=== PATIENT | male | born 1950 | race African-American/Black ===

== ENCOUNTER 2018-02-13 08:02 | Inpatient (IN) ==
[2018-02-21 12:06] VITALS: BP 133/77
== END 2018-02-21 13:45 | disposition home health service (06) | DRG 240 ==
LOC: N.RAD 08:02 → N.SDSINP 08:14 → N.3E 12:17
PROVIDERS: ADMIT Surgery; ATTEND Surgery

== ENCOUNTER 2018-08-06 11:58 | Inpatient (IN) ==
[2018-08-06 12:35] LABS: Basophils % 0.3 % (0.0-0.8); Eosinophils # 0.1 10*3/uL (0.0-0.87); Eosinophils % 0.8 % (0.00-10.9); Hematocrit 31.7 VOL% (42.0-52.0); Hemoglobin 10.3 GM/DL (14.0-18.0); Immature Granulocytes % 0.4 %; Immature Granulocytes Absolute 0.04 #; Lymphocytes # 1.2 10*3/uL (1.4-4.0); Lymphocytes % 13.2 % (21.2-54.2); Mean Corpuscular HGB Conc 32.5 GM/DL (32-36); Mean Corpuscular Hemoglobin 30 PG (27-34); Mean Corpuscular Volume 91.1 FL (87-102); Mean Platelet Volume 9.7 FL (9.6-12.0); Monocytes # 1.1 10*3/uL (0.11-0.8); Monocytes % 12.3 % (1.7-12.7); Neutrophils # 6.8 10*3/uL (1.4-7.4); Platelet Count 341 T/CUMM (130-400); Red Blood Count 3.48 MC/CUMM (3.8-5.5); Red Cell Distribution Width 12.2 % (9.3-17.3); White Blood Count 9.3 T/CUMM (4-12)
[2018-08-06 13:05] LABS: Albumin 2.7 G/DL (3.4-5.0); Bilirubin,Total 0.9 MG/DL (0.2-1.0); Calcium 9.1 MG/DL (8.5-10.1); Osmolality,Calculated 271.5 MOS/KG (273-304); Potassium 4.4 MMOL/L (3.5-5.1); Total Protein 7.4 G/DL (6.4-8.3)
[2018-08-06 13:15] LABS: Lactic Acid 1.8 MMOL/L (0.4-2.0)
[2018-08-06] MEDS ORDERED: SODIUM CHLORIDE 0.9% 1,000 ML IV STA (13:16)
[2018-08-06] MEDS ORDERED: CLINDAMYCIN INJ 600 MG in PREMIX 1 EACH IV STA (13:16)
[2018-08-06] MEDS ORDERED: DEXTROSE 50% 25 GM/50 ML VIAL IV PRN (15:40)
[2018-08-06] MEDS ORDERED: NICOTINE 21 MG/24 HR PATCH TRANSDERM PRN (15:40)
[2018-08-06] MEDS ORDERED: ONDANSETRON 4 MG/2 ML VIAL IV PRN (15:40)
[2018-08-06] MEDS ORDERED: GLUCAGON 1 MG VIAL IM PRN (15:40)
[2018-08-06] MEDS ORDERED: DOCUSATE SODIUM 100 MG CAPSULE PO PRN (15:40)
[2018-08-06] MEDS ORDERED: ACETAMINOPHEN 325 MG TABLET PO PRN (15:40)
[2018-08-06] MEDS ORDERED: diphenhydrAMINE CAP 25 MG CAPSULE PO PRN (15:40)
[2018-08-06] MEDS: PANTOPRAZOLE 40 MG TABLET PO SCH (17:30)
[2018-08-06] MEDS: SODIUM CHLORIDE 0.9% 1,000 ML IV SCH (17:47)
[2018-08-06] MEDS: VANCOMYCIN INJ 1,250 MG in SODIUM CHLORIDE 0.9% 250 ML IV SCH (18:40)
[2018-08-06] MEDS: MORPHINE 4 MG/1 ML VIAL IV SCH ×2 (18:40→21:04)
[2018-08-06] MEDS: INSULIN LISPRO 100 UNIT/ML SUBCUT SCH (18:41)
[2018-08-06] MEDS: glipiZIDE 10 MG TABLET PO SCH (21:06)
[2018-08-06] MEDS: GABAPENTIN 300 MG CAPSULE PO SCH (21:07)
[2018-08-06] MEDS: ATORVASTATIN 80 MG TABLET PO SCH (21:07)
[2018-08-07] MEDS: SODIUM CHLORIDE 0.9% 1,000 ML IV SCH ×2 (02:56→09:45)
[2018-08-07 06:15] LABS: Basophils % 0.4 % (0.0-0.8); Eosinophils # 0.2 10*3/uL (0.0-0.87); Eosinophils % 2.7 % (0.00-10.9); Hematocrit 26.8 VOL% (42.0-52.0); Hemoglobin 8.7 GM/DL (14.0-18.0); Immature Granulocytes % 0.5 %; Immature Granulocytes Absolute 0.04 #; Lymphocytes # 1.5 10*3/uL (1.4-4.0); Lymphocytes % 20.5 % (21.2-54.2); Mean Corpuscular HGB Conc 32.5 GM/DL (32-36); Mean Corpuscular Hemoglobin 30 PG (27-34); Mean Corpuscular Volume 91.8 FL (87-102); Mean Platelet Volume 9.8 FL (9.6-12.0); Monocytes # 1.1 10*3/uL (0.11-0.8); Monocytes % 14.6 % (1.7-12.7); Neutrophils # 4.6 10*3/uL (1.4-7.4); Neutrophils % 61.3 % (38.7-73.9); Platelet Count 284 T/CUMM (130-400); Red Blood Count 2.92 MC/CUMM (3.8-5.5); Red Cell Distribution Width 12.2 % (9.3-17.3); White Blood Count 7.5 T/CUMM (4-12)
[2018-08-07 06:39] LABS: Calcium 8.5 MG/DL (8.5-10.1)
[2018-08-07 06:47] LABS: Risk Ratio 3.29; Thyroid Stimulating Hormone 0.573 uIU/ml (0.358-3.74); VLDL CHOLESTEROL 25.8 MG/DL
[2018-08-07] MEDS: INSULIN LISPRO 100 UNIT/ML SUBCUT SCH ×4 (08:08→20:46)
[2018-08-07] MEDS ORDERED: SODIUM CHLORIDE 0.9% 1,000 ML IV ONE ×2 (08:26→13:00)
[2018-08-07] MEDS ORDERED: MAGNESIUM SULF RIDER 4 GM in PREMIX 1 EACH IV PRN (08:27)
[2018-08-07] MEDS: MAGNESIUM SULF RIDER 2 GM in PREMIX 1 EACH IV PRN (09:45)
[2018-08-07] MEDS ORDERED: BUPIVACAINE 0.5% 50 ML VIAL ONE (10:14)
[2018-08-07] MEDS ORDERED: GLUCAGON 1 MG VIAL IM PRN (11:24)
[2018-08-07] MEDS ORDERED: DEXTROSE 50% 25 GM/50 ML VIAL IV PRN (11:24)
[2018-08-07] MEDS ORDERED: ONDANSETRON 4 MG/2 ML VIAL IV PRN (11:35)
[2018-08-07] MEDS ORDERED: PROMETHAZINE INJ 25 MG in SODIUM CHLORIDE 0.9% 50 ML IV PRN (11:35)
[2018-08-07] MEDS ORDERED: MORPHINE 10 MG/1 ML VIAL IV PRN (11:35)
[2018-08-07] MEDS ORDERED: MEPERIDINE 25 MG/1 ML VIAL IV PRN (11:35)
[2018-08-07] MEDS ORDERED: diphenhydrAMINE 50 MG/1 ML VIAL IV PRN (11:35)
[2018-08-07] MEDS: ASPIRIN CHEW 81 MG TABLET PO SCH (12:18)
[2018-08-07] MEDS: glipiZIDE 10 MG TABLET PO SCH ×2 (12:19→20:39)
[2018-08-07] MEDS: sitaGLIPtin 100 MG TABLET PO SCH (12:19)
[2018-08-07] MEDS: VANCOMYCIN INJ 1,250 MG in SODIUM CHLORIDE 0.9% 250 ML IV SCH (12:31)
[2018-08-07] MEDS ORDERED: fentaNYL 100 MCG/2 ML VIAL ONE (13:19)
[2018-08-07] MEDS ORDERED: PHENYLEPHRINE 1 MG/10 ML SYRINGE IV ONE (13:19)
[2018-08-07] MEDS ORDERED: SEVOFLURANE 1 UNIT/15 MINUTE INH ONE (13:19)
[2018-08-07] MEDS ORDERED: PROPOFOL 200 MG/20 ML VIAL IV ONE (13:19)
[2018-08-07] MEDS: PANTOPRAZOLE 40 MG TABLET PO SCH (14:07)
[2018-08-07] MEDS: GABAPENTIN 300 MG CAPSULE PO SCH ×2 (14:07→20:39)
[2018-08-07] MEDS: ATORVASTATIN 80 MG TABLET PO SCH (20:39)
[2018-08-08] MEDS: SODIUM CHLORIDE 0.9% 1,000 ML IV SCH (02:35)
[2018-08-08] MEDS: VANCOMYCIN INJ 1,250 MG in SODIUM CHLORIDE 0.9% 250 ML IV SCH (05:34)
[2018-08-08] MEDS: INSULIN LISPRO 100 UNIT/ML SUBCUT SCH ×4 (08:34→23:05)
[2018-08-08 08:40] LABS: Basophils % 0.5 % (0.0-0.8); Eosinophils # 0.2 10*3/uL (0.0-0.87); Eosinophils % 3.8 % (0.00-10.9); Hematocrit 24.6 VOL% (42.0-52.0); Hemoglobin 7.8 GM/DL (14.0-18.0); Immature Granulocytes % 0.4 %; Immature Granulocytes Absolute 0.02 #; Lymphocytes % 18.7 % (21.2-54.2); Mean Corpuscular HGB Conc 31.7 GM/DL (32-36); Mean Corpuscular Hemoglobin 30 PG (27-34); Mean Corpuscular Volume 93.5 FL (87-102); Mean Platelet Volume 9.4 FL (9.6-12.0); Monocytes # 0.7 10*3/uL (0.11-0.8); Monocytes % 12.5 % (1.7-12.7); Neutrophils # 3.5 10*3/uL (1.4-7.4); Neutrophils % 64.1 % (38.7-73.9); Platelet Count 223 T/CUMM (130-400); Red Blood Count 2.63 MC/CUMM (3.8-5.5); Red Cell Distribution Width 12.4 % (9.3-17.3); White Blood Count 5.5 T/CUMM (4-12)
[2018-08-08 09:04] LABS: Calcium 7.9 MG/DL (8.5-10.1); Osmolality,Calculated 277.5 MOS/KG (273-304); Potassium 4.1 MMOL/L (3.5-5.1)
[2018-08-08] MEDS: MORPHINE 4 MG/1 ML VIAL IV PRN (09:34)
[2018-08-08] MEDS: GABAPENTIN 300 MG CAPSULE PO SCH ×2 (09:37→23:01)
[2018-08-08] MEDS: glipiZIDE 10 MG TABLET PO SCH ×2 (09:37→23:01)
[2018-08-08] MEDS: ASPIRIN CHEW 81 MG TABLET PO SCH (09:37)
[2018-08-08] MEDS: PANTOPRAZOLE 40 MG TABLET PO SCH (09:38)
[2018-08-08] MEDS: SODIUM HYPOCHLORITE 0.25% IRRIG 473 ML BOTTLE TOP SCH (09:38)
[2018-08-08] MEDS: sitaGLIPtin 100 MG TABLET PO SCH (09:38)
[2018-08-08] MEDS: PIPERACILLIN/TAZOBACTAM 3,375 MG in SODIUM CHLORIDE 0.9% 100 ML IV SCH ×2 (14:49→22:55)
[2018-08-08] MEDS: ATORVASTATIN 80 MG TABLET PO SCH (23:01)
[2018-08-09] MEDS: VANCOMYCIN INJ 1,250 MG in SODIUM CHLORIDE 0.9% 250 ML IV SCH ×2 (05:00→17:18)
[2018-08-09 05:18] LABS: Basophils % 0.6 % (0.0-0.8); Eosinophils # 0.3 10*3/uL (0.0-0.87); Eosinophils % 4.7 % (0.00-10.9); Hematocrit 24.2 VOL% (42.0-52.0); Hemoglobin 7.4 GM/DL (14.0-18.0); Immature Granulocytes % 0.6 %; Immature Granulocytes Absolute 0.03 #; Lymphocytes # 1.2 10*3/uL (1.4-4.0); Lymphocytes % 22.9 % (21.2-54.2); Mean Corpuscular HGB Conc 30.6 GM/DL (32-36); Mean Corpuscular Hemoglobin 29 PG (27-34); Mean Corpuscular Volume 95.7 FL (87-102); Mean Platelet Volume 9.8 FL (9.6-12.0); Monocytes # 0.7 10*3/uL (0.11-0.8); Monocytes % 12.5 % (1.7-12.7); Neutrophils # 3.1 10*3/uL (1.4-7.4); Neutrophils % 58.7 % (38.7-73.9); Platelet Count 272 T/CUMM (130-400); Red Blood Count 2.53 MC/CUMM (3.8-5.5); Red Cell Distribution Width 12.4 % (9.3-17.3); White Blood Count 5.3 T/CUMM (4-12)
[2018-08-09 05:49] LABS: Calcium 8.2 MG/DL (8.5-10.1); Osmolality,Calculated 278.3 MOS/KG (273-304); Potassium 4.6 MMOL/L (3.5-5.1)
[2018-08-09] MEDS: INSULIN LISPRO 100 UNIT/ML SUBCUT SCH ×4 (09:00→21:43)
[2018-08-09] MEDS: PANTOPRAZOLE 40 MG TABLET PO SCH (09:02)
[2018-08-09] MEDS: GABAPENTIN 300 MG CAPSULE PO SCH ×2 (09:02→21:44)
[2018-08-09] MEDS: sitaGLIPtin 100 MG TABLET PO SCH (09:03)
[2018-08-09] MEDS: ASPIRIN CHEW 81 MG TABLET PO SCH (09:06)
[2018-08-09] MEDS: glipiZIDE 10 MG TABLET PO SCH ×2 (09:07→21:43)
[2018-08-09] MEDS: PIPERACILLIN/TAZOBACTAM 3,375 MG in SODIUM CHLORIDE 0.9% 100 ML IV SCH ×2 (09:08→17:17)
[2018-08-09] MEDS: MORPHINE 4 MG/1 ML VIAL IV PRN (12:17)
[2018-08-09] MEDS: SODIUM HYPOCHLORITE 0.25% IRRIG 473 ML BOTTLE TOP SCH (13:08)
[2018-08-09] MEDS: MAGNESIUM SULF RIDER 2 GM in PREMIX 1 EACH IV PRN (14:51)
[2018-08-09] MEDS: ATORVASTATIN 80 MG TABLET PO SCH (21:44)
[2018-08-10] MEDS: PIPERACILLIN/TAZOBACTAM 3,375 MG in SODIUM CHLORIDE 0.9% 100 ML IV SCH ×3 (01:07→17:29)
[2018-08-10 04:16] LABS: Basophils % 0.6 % (0.0-0.8); Eosinophils # 0.3 10*3/uL (0.0-0.87); Eosinophils % 5.7 % (0.00-10.9); Hematocrit 25.1 VOL% (42.0-52.0); Hemoglobin 7.7 GM/DL (14.0-18.0); Immature Granulocytes % 0.4 %; Immature Granulocytes Absolute 0.02 #; Lymphocytes # 1.2 10*3/uL (1.4-4.0); Lymphocytes % 25.1 % (21.2-54.2); Mean Corpuscular HGB Conc 30.7 GM/DL (32-36); Mean Corpuscular Hemoglobin 28 PG (27-34); Mean Corpuscular Volume 92.6 FL (87-102); Mean Platelet Volume 9.6 FL (9.6-12.0); Monocytes # 0.5 10*3/uL (0.11-0.8); Monocytes % 10.1 % (1.7-12.7); Neutrophils # 2.8 10*3/uL (1.4-7.4); Neutrophils % 58.1 % (38.7-73.9); Platelet Count 305 T/CUMM (130-400); Red Blood Count 2.71 MC/CUMM (3.8-5.5); Red Cell Distribution Width 12.3 % (9.3-17.3); White Blood Count 4.9 T/CUMM (4-12)
[2018-08-10 04:36] LABS: Calcium 8.1 MG/DL (8.5-10.1); Osmolality,Calculated 282.1 MOS/KG (273-304); Potassium 4.4 MMOL/L (3.5-5.1)
[2018-08-10] MEDS: VANCOMYCIN INJ 1,250 MG in SODIUM CHLORIDE 0.9% 250 ML IV SCH ×2 (06:26→17:29)
[2018-08-10] MEDS: SODIUM HYPOCHLORITE 0.25% IRRIG 473 ML BOTTLE TOP SCH (07:50)
[2018-08-10] MEDS: MORPHINE 4 MG/1 ML VIAL IV PRN (07:51)
[2018-08-10] MEDS: INSULIN LISPRO 100 UNIT/ML SUBCUT SCH ×4 (08:17→21:39)
[2018-08-10] MEDS: GABAPENTIN 300 MG CAPSULE PO SCH ×2 (09:23→21:01)
[2018-08-10] MEDS: glipiZIDE 10 MG TABLET PO SCH ×2 (09:24→21:01)
[2018-08-10] MEDS: sitaGLIPtin 100 MG TABLET PO SCH (09:25)
[2018-08-10] MEDS: PANTOPRAZOLE 40 MG TABLET PO SCH (09:25)
[2018-08-10] MEDS: ASPIRIN CHEW 81 MG TABLET PO SCH (09:25)
[2018-08-10] MEDS: MAGNESIUM OXIDE 400 MG TABLET PO SCH (21:01)
[2018-08-10] MEDS: METOPROLOL SUCCINATE XL 50 MG TABLET PO SCH (21:01)
[2018-08-10] MEDS: ATORVASTATIN 80 MG TABLET PO SCH (21:01)
[2018-08-11] MEDS: PIPERACILLIN/TAZOBACTAM 3,375 MG in SODIUM CHLORIDE 0.9% 100 ML IV SCH ×2 (00:23→08:00)
[2018-08-11] MEDS: VANCOMYCIN INJ 1,250 MG in SODIUM CHLORIDE 0.9% 250 ML IV SCH (05:40)
[2018-08-11 05:44] LABS: Basophils % 0.5 % (0.0-0.8); Eosinophils # 0.3 10*3/uL (0.0-0.87); Eosinophils % 4.8 % (0.00-10.9); Hematocrit 25.3 VOL% (42.0-52.0); Hemoglobin 7.9 GM/DL (14.0-18.0); Immature Granulocytes % 0.9 %; Immature Granulocytes Absolute 0.05 #; Lymphocytes # 1.3 10*3/uL (1.4-4.0); Lymphocytes % 23.3 % (21.2-54.2); Mean Corpuscular HGB Conc 31.2 GM/DL (32-36); Mean Corpuscular Hemoglobin 29 PG (27-34); Mean Corpuscular Volume 92.7 FL (87-102); Mean Platelet Volume 9.6 FL (9.6-12.0); Monocytes # 0.6 10*3/uL (0.11-0.8); Monocytes % 10.5 % (1.7-12.7); Neutrophils # 3.4 10*3/uL (1.4-7.4); Platelet Count 324 T/CUMM (130-400); Red Blood Count 2.73 MC/CUMM (3.8-5.5); Red Cell Distribution Width 12.5 % (9.3-17.3); White Blood Count 5.6 T/CUMM (4-12)
[2018-08-11 05:56] LABS: Calcium 8.4 MG/DL (8.5-10.1); Osmolality,Calculated 281.3 MOS/KG (273-304); Potassium 4.6 MMOL/L (3.5-5.1)
[2018-08-11] MEDS: INSULIN LISPRO 100 UNIT/ML SUBCUT SCH ×2 (07:23→12:10)
[2018-08-11] MEDS: MAGNESIUM OXIDE 400 MG TABLET PO SCH (08:03)
[2018-08-11] MEDS: GABAPENTIN 300 MG CAPSULE PO SCH (08:03)
[2018-08-11] MEDS: sitaGLIPtin 100 MG TABLET PO SCH (08:03)
[2018-08-11] MEDS: glipiZIDE 10 MG TABLET PO SCH (08:03)
[2018-08-11] MEDS: METOPROLOL SUCCINATE XL 50 MG TABLET PO SCH (08:03)
[2018-08-11] MEDS: PANTOPRAZOLE 40 MG TABLET PO SCH (08:04)
[2018-08-11] MEDS: ASPIRIN CHEW 81 MG TABLET PO SCH (08:04)
[2018-08-11] MEDS: SODIUM HYPOCHLORITE 0.25% IRRIG 473 ML BOTTLE TOP SCH (08:06)
[2018-08-11] MEDS ORDERED: MAGNESIUM SULF RIDER 2 GM in PREMIX 1 EACH IV ONE (09:00)
[2018-08-11] MEDS ORDERED: LOSARTAN 50 MG TABLET PO SCH (09:00)
[2018-08-11 11:40] VITALS: BP 134/69
[2018-08-11] MEDS ORDERED: CEFUROXIME 500 MG TABLET PO SCH (21:00)
== END 2018-08-11 15:24 | disposition home health service (06) | DRG 856 ==
LOC: N.ED 11:58 → N.EDINP 15:41 → SUATTDRO 15:41 → N.2W 16:36 → N.2E 18:00
PROVIDERS: ADMIT Internal Medicine; ATTEND Internal Medicine

== ENCOUNTER 2021-02-09 09:36 | Inpatient (IN) ==
[2021-02-09 10:39] LABS: Basophils # 0.1 10*3/uL (0.0-0.2); Basophils % 0.2 % (0.0-0.8); Eosinophils # 0.1 10*3/uL (0.0-0.87); Eosinophils % 0.4 % (0.00-10.9); Hematocrit 37.7 VOL% (42.0-52.0); Hemoglobin 13.1 GM/DL (14.0-18.0); Immature Granulocytes % 0.8 %; Immature Granulocytes Absolute 0.17 #; Lymphocytes # 1.5 10*3/uL (1.4-4.0); Lymphocytes % 7.2 % (21.2-54.2); Mean Corpuscular HGB Conc 34.7 GM/DL (32-36); Mean Corpuscular Volume 91.5 FL (87-102); Mean Platelet Volume 10.3 FL (9.6-12.0); Monocytes % 8.3 % (1.7-12.7); Neutrophils % 83.1 % (38.7-73.9); Platelet Count 408 T/CUMM (130-400); Red Blood Count 4.12 MC/CUMM (3.8-5.5); Red Cell Distribution Width 11.8 % (9.3-17.3); White Blood Count 20.8 T/CUMM (4-12)
[2021-02-09 11:01] LABS: Albumin 1.9 G/DL (3.4-5.0); Bilirubin,Total 0.7 MG/DL (0.2-1.0); Calcium 9.8 MG/DL (8.5-10.1); Osmolality,Calculated 274.9 MOS/KG (273-304); Potassium 4.8 MMOL/L (3.5-5.1); Total Protein 8.4 G/DL (6.4-8.2)
[2021-02-09 11:03] LABS: Band Neutrophils 1 % (0-10); Lymphocytes 7 % (20-55); Segmented Neutrophils 82 % (50-85); Total Cells Counted 100
[2021-02-09 11:04] LABS: Hypochromasia Slight; Microcytosis 1+; Platelet Estimate Increased
[2021-02-09 11:22] LABS: Amorphous Crystals,Urine Occasional /HPF (Few); Bilirubin,Urine Negative (Negative); Blood, Urine Moderate mg/dL (Negative); Glucose,Urine (UA) >=500 mg/dL (Negative); Ketones,Urine Negative (Negative); Mucus,Urine Occasional /LPF (Occasional); Nitrite,Urine Negative (Negative); Protein,Urine >=500 MG/DL; RBC,Urine 2 /HPF (0-4); Squamous Epithelial Cell,Urine Occasional /HPF (0-10); Urine Appearance Slightly Hazy (Clear); Urine Color Yellow (Yellow); Urine Specific Gravity 1.026 (1.001-1.035)
[2021-02-09] MEDS ORDERED: SODIUM CHLORIDE 0.9% 1,000 ML IV STA (11:53)
[2021-02-09] MEDS ORDERED: DEXTROSE 50% 25 GM/50 ML VIAL IV PRN (12:58)
[2021-02-09] MEDS ORDERED: hydrALAZINE 20 MG/1 ML VIAL IV PRN (12:58)
[2021-02-09] MEDS ORDERED: DOCUSATE SODIUM 100 MG CAPSULE PO PRN (12:58)
[2021-02-09] MEDS ORDERED: GLUCAGON 1 MG VIAL IM PRN (12:58)
[2021-02-09] MEDS ORDERED: ONDANSETRON 4 MG/2 ML VIAL IV PRN (12:58)
[2021-02-09 13:37] LABS: Risk Ratio 4.59; VLDL CHOLESTEROL 30.8 MG/DL
[2021-02-09] MEDS: ENOXAPARIN 40 MG/0.4 ML SYRINGE SUBCUT SCH (14:57)
[2021-02-09] MEDS: SODIUM CHLORIDE 0.9% 1,000 ML IV SCH ×2 (18:50→20:48)
[2021-02-09] MEDS: INSULIN REGULAR 100 UNIT/ML SUBCUT SCH ×2 (18:50→20:47)
[2021-02-09] MEDS: METOPROLOL TARTRATE 50 MG TABLET PO SCH (20:47)
[2021-02-09] MEDS: GABAPENTIN 300 MG CAPSULE PO SCH (20:47)
[2021-02-09] MEDS: ACETAMINOPHEN 325 MG TABLET PO PRN (20:47)
[2021-02-09 21:17] LABS: Bilirubin,Urine Negative (Negative); Blood, Urine Moderate mg/dL (Negative); Glucose,Urine (UA) >=500 mg/dL (Negative); Hyaline Casts,Urine 1 /LPF (0-3); Ketones,Urine 5 mg/dL (Negative); Mucus,Urine Occasional /LPF (Occasional); Nitrite,Urine Negative (Negative); Protein,Urine >=500 MG/DL; RBC,Urine 4 /HPF (0-4); Squamous Epithelial Cell,Urine Occasional /HPF (0-10); Urine Appearance Slightly Hazy (Clear); Urine Color Yellow (Yellow); Urine Specific Gravity 1.042 (1.001-1.035)
[2021-02-10 05:49] LABS: Basophils % 0.2 % (0.0-0.8); Eosinophils # 0.2 10*3/uL (0.0-0.87); Eosinophils % 1.3 % (0.00-10.9); Hematocrit 33.2 VOL% (42.0-52.0); Hemoglobin 11.7 GM/DL (14.0-18.0); Immature Granulocytes % 1.8 %; Immature Granulocytes Absolute 0.33 #; Lymphocytes # 1.2 10*3/uL (1.4-4.0); Lymphocytes % 6.6 % (21.2-54.2); Mean Corpuscular HGB Conc 35.2 GM/DL (32-36); Mean Corpuscular Volume 91.7 FL (87-102); Mean Platelet Volume 10.3 FL (9.6-12.0); Monocytes % 10.5 % (1.7-12.7); Neutrophils % 79.6 % (38.7-73.9); Platelet Count 362 T/CUMM (130-400); Red Blood Count 3.62 MC/CUMM (3.8-5.5); Red Cell Distribution Width 11.7 % (9.3-17.3); White Blood Count 18.2 T/CUMM (4-12)
[2021-02-10] MEDS: SODIUM CHLORIDE 0.9% 1,000 ML IV SCH ×2 (06:22→15:23)
[2021-02-10 06:37] LABS: Albumin 1.5 G/DL (3.4-5.0); Bilirubin,Total 0.7 MG/DL (0.2-1.0); Calcium 8.9 MG/DL (8.5-10.1); Osmolality,Calculated 266.7 MOS/KG (273-304); Potassium 4.7 MMOL/L (3.5-5.1); Thyroid Stimulating Hormone 1.59 uIU/ml (0.358-3.74); Total Protein 7.1 G/DL (6.4-8.2)
[2021-02-10] MEDS: ASPIRIN EC 81 MG TABLET PO SCH (10:00)
[2021-02-10] MEDS: GABAPENTIN 300 MG CAPSULE PO SCH ×2 (10:00→21:46)
[2021-02-10] MEDS: METOPROLOL TARTRATE 50 MG TABLET PO SCH ×2 (10:00→21:46)
[2021-02-10] MEDS: FOLIC ACID 1 MG TABLET PO SCH (10:00)
[2021-02-10] MEDS: THIAMINE 100 MG TABLET PO SCH (10:01)
[2021-02-10] MEDS: NICOTINE 21 MG/24 HR PATCH TRANSDERM SCH (13:08)
[2021-02-10] MEDS: INSULIN REGULAR 100 UNIT/ML SUBCUT SCH ×2 (13:36→16:58)
[2021-02-10] MEDS ORDERED: LORazepam 2 MG/1 ML VIAL IV PRN (14:50)
[2021-02-10] MEDS: ATORVASTATIN 10 MG TABLET PO SCH (21:46)
[2021-02-10] MEDS: ENOXAPARIN 40 MG/0.4 ML SYRINGE SUBCUT SCH (21:46)
[2021-02-10] MEDS: INSULIN GLARGINE 100 UNIT/ML SUBCUT SCH (21:46)
[2021-02-10] MEDS: PIPERACILLIN/TAZOBACTAM 3,375 MG in SODIUM CHLORIDE 0.9% 100 ML IV SCH (21:47)
[2021-02-11] MEDS: PIPERACILLIN/TAZOBACTAM 3,375 MG in SODIUM CHLORIDE 0.9% 100 ML IV SCH ×3 (05:55→20:20)
[2021-02-11] MEDS: SODIUM CHLORIDE 0.9% 1,000 ML IV SCH ×3 (05:55→21:42)
[2021-02-11 06:28] LABS: Basophils % 0.2 % (0.0-0.8); Eosinophils # 0.2 10*3/uL (0.0-0.87); Eosinophils % 1.1 % (0.00-10.9); Hematocrit 31.6 VOL% (42.0-52.0); Hemoglobin 10.4 GM/DL (14.0-18.0); Immature Granulocytes % 1.2 %; Lymphocytes # 1.6 10*3/uL (1.4-4.0); Lymphocytes % 9.1 % (21.2-54.2); Mean Corpuscular HGB Conc 32.9 GM/DL (32-36); Mean Platelet Volume 10.7 FL (9.6-12.0); Monocytes % 9.9 % (1.7-12.7); Neutrophils % 78.5 % (38.7-73.9); Platelet Count 378 T/CUMM (130-400); Red Blood Count 3.36 MC/CUMM (3.8-5.5); Red Cell Distribution Width 11.9 % (9.3-17.3); White Blood Count 17.1 T/CUMM (4-12)
[2021-02-11 06:47] LABS: Alanine Aminotransferase < 9 U/L (16-61); Albumin 1.4 G/DL (3.4-5.0); Alkaline Phosphatase 89 U/L (45-117); Aspartate Amino Transferase 11 U/L (0-37); Blood Urea Nitrogen 14 MG/DL (7-18); Calcium 8.6 MG/DL (8.5-10.1); Carbon Dioxide 23 MMOL/L (21-32); Estimated Glom Filtration Rate 98 ML/MIN; Glucose 153 MG/DL (74-106); Osmolality,Calculated 269.4 MOS/KG (273-304); Potassium 4.1 MMOL/L (3.5-5.1); Sodium 133 MMOL/L (136-145); Total Protein 6.8 G/DL (6.4-8.2)
[2021-02-11] MEDS: INSULIN REGULAR 100 UNIT/ML SUBCUT SCH ×3 (09:36→17:02)
[2021-02-11] MEDS: ASPIRIN EC 81 MG TABLET PO SCH (09:36)
[2021-02-11] MEDS: FOLIC ACID 1 MG TABLET PO SCH (09:36)
[2021-02-11] MEDS: GABAPENTIN 300 MG CAPSULE PO SCH ×2 (09:36→20:19)
[2021-02-11] MEDS: THIAMINE 100 MG TABLET PO SCH (09:36)
[2021-02-11] MEDS: METOPROLOL TARTRATE 50 MG TABLET PO SCH ×2 (09:36→20:20)
[2021-02-11] MEDS: NICOTINE 21 MG/24 HR PATCH TRANSDERM SCH (09:37)
[2021-02-11] MEDS: SODIUM HYPOCHLORITE 0.25% IRRIG 473 ML BOTTLE TOP SCH (17:40)
[2021-02-11] MEDS: ATORVASTATIN 10 MG TABLET PO SCH (20:20)
[2021-02-11] MEDS: ENOXAPARIN 40 MG/0.4 ML SYRINGE SUBCUT SCH (20:20)
[2021-02-11] MEDS: INSULIN GLARGINE 100 UNIT/ML SUBCUT SCH (22:06)
[2021-02-12] MEDS: ACETAMINOPHEN 325 MG TABLET PO PRN (04:07)
[2021-02-12] MEDS: PIPERACILLIN/TAZOBACTAM 3,375 MG in SODIUM CHLORIDE 0.9% 100 ML IV SCH (04:07)
[2021-02-12 08:50] LABS: Basophils % 0.2 % (0.0-0.8); Eosinophils # 0.2 10*3/uL (0.0-0.87); Eosinophils % 1.2 % (0.00-10.9); Immature Granulocytes % 1.1 %; Immature Granulocytes Absolute 0.16 #; Lymphocytes # 1.4 10*3/uL (1.4-4.0); Lymphocytes % 9.3 % (21.2-54.2); Mean Corpuscular HGB Conc 33.3 GM/DL (32-36); Mean Corpuscular Volume 94.8 FL (87-102); Mean Platelet Volume 10.6 FL (9.6-12.0); Monocytes % 8.3 % (1.7-12.7); Neutrophils % 79.9 % (38.7-73.9); Platelet Count 349 T/CUMM (130-400); Red Blood Count 3.48 MC/CUMM (3.8-5.5); Red Cell Distribution Width 11.9 % (9.3-17.3); White Blood Count 15.1 T/CUMM (4-12)
[2021-02-12 09:03] LABS: Calcium 8.9 MG/DL (8.5-10.1); Potassium 3.9 MMOL/L (3.5-5.1)
[2021-02-12] MEDS: ASPIRIN EC 81 MG TABLET PO SCH (10:07)
[2021-02-12] MEDS: METOPROLOL TARTRATE 50 MG TABLET PO SCH ×2 (10:07→21:36)
[2021-02-12] MEDS: FOLIC ACID 1 MG TABLET PO SCH (10:07)
[2021-02-12] MEDS: GABAPENTIN 300 MG CAPSULE PO SCH ×2 (10:07→21:36)
[2021-02-12] MEDS: SODIUM HYPOCHLORITE 0.25% IRRIG 473 ML BOTTLE TOP SCH (10:07)
[2021-02-12] MEDS: INSULIN REGULAR 100 UNIT/ML SUBCUT SCH ×3 (10:07→17:40)
[2021-02-12] MEDS: NICOTINE 21 MG/24 HR PATCH TRANSDERM SCH (10:07)
[2021-02-12] MEDS: THIAMINE 100 MG TABLET PO SCH (10:07)
[2021-02-12] MEDS: VANCOMYCIN INJ 1,250 MG in SODIUM CHLORIDE 0.9% 250 ML IV SCH (15:44)
[2021-02-12] MEDS: SODIUM CHLORIDE 0.9% 1,000 ML IV SCH ×2 (16:00→21:28)
[2021-02-12] MEDS: ATORVASTATIN 10 MG TABLET PO SCH (21:36)
[2021-02-12] MEDS: ENOXAPARIN 40 MG/0.4 ML SYRINGE SUBCUT SCH (21:36)
[2021-02-12] MEDS: INSULIN GLARGINE 100 UNIT/ML SUBCUT SCH (23:07)
[2021-02-13] MEDS: VANCOMYCIN INJ 1,250 MG in SODIUM CHLORIDE 0.9% 250 ML IV SCH ×2 (03:46→15:38)
[2021-02-13 05:26] LABS: Basophils % 0.2 % (0.0-0.8); Eosinophils # 0.2 10*3/uL (0.0-0.87); Eosinophils % 1.1 % (0.00-10.9); Hematocrit 29.4 VOL% (42.0-52.0); Hemoglobin 9.6 GM/DL (14.0-18.0); Immature Granulocytes % 1.4 %; Immature Granulocytes Absolute 0.25 #; Lymphocytes # 1.6 10*3/uL (1.4-4.0); Lymphocytes % 9.2 % (21.2-54.2); Mean Corpuscular HGB Conc 32.7 GM/DL (32-36); Mean Corpuscular Volume 96.1 FL (87-102); Mean Platelet Volume 10.6 FL (9.6-12.0); Monocytes % 9.9 % (1.7-12.7); Neutrophils % 78.2 % (38.7-73.9); Platelet Count 343 T/CUMM (130-400); Red Blood Count 3.06 MC/CUMM (3.8-5.5); White Blood Count 17.8 T/CUMM (4-12)
[2021-02-13 05:49] LABS: Calcium 8.3 MG/DL (8.5-10.1); Potassium 4.3 MMOL/L (3.5-5.1)
[2021-02-13 05:56] LABS: Band Neutrophils 2 % (0-10); Eosinophils 1 % (0-10); Hypochromasia 1+; Lymphocytes 5 % (20-55); Segmented Neutrophils 89 % (50-85); Total Cells Counted 100
[2021-02-13 05:57] LABS: Microcytosis Slight; Platelet Estimate Normal
[2021-02-13] MEDS: SODIUM CHLORIDE 0.9% 1,000 ML IV SCH ×3 (06:14→23:57)
[2021-02-13] MEDS: INSULIN REGULAR 100 UNIT/ML SUBCUT SCH ×3 (09:38→17:44)
[2021-02-13] MEDS ORDERED: propofoL 200 MG/20 ML VIAL IV ONE (09:59)
[2021-02-13] MEDS ORDERED: LIDOCAINE 2% 5 ML VIAL ONE (09:59)
[2021-02-13] MEDS ORDERED: fentaNYL 100 MCG/2 ML VIAL ONE (09:59)
[2021-02-13] MEDS ORDERED: BUPIVACAINE MPF 0.25% 30 ML VIAL ONE (10:14)
[2021-02-13] MEDS ORDERED: FAMOTIDINE 20 MG/2 ML VIAL IV ONE (10:16)
[2021-02-13] MEDS ORDERED: ETOMIDATE 40 MG/20 ML VIAL IV ONE (10:23)
[2021-02-13] MEDS ORDERED: SEVOFLURANE 1 UNIT/15 MINUTE INH ONE (11:08)
[2021-02-13] MEDS ORDERED: ONDANSETRON 4 MG/2 ML VIAL ONE (11:08)
[2021-02-13] MEDS ORDERED: GLUCAGON 1 MG VIAL IM PRN (11:22)
[2021-02-13] MEDS ORDERED: DEXTROSE 50% 25 GM/50 ML VIAL IV PRN (11:22)
[2021-02-13] MEDS: NICOTINE 21 MG/24 HR PATCH TRANSDERM SCH (12:11)
[2021-02-13] MEDS: FOLIC ACID 1 MG TABLET PO SCH (12:12)
[2021-02-13] MEDS: THIAMINE 100 MG TABLET PO SCH (12:12)
[2021-02-13] MEDS: GABAPENTIN 300 MG CAPSULE PO SCH ×2 (12:12→21:11)
[2021-02-13] MEDS: METOPROLOL TARTRATE 50 MG TABLET PO SCH ×2 (12:12→21:11)
[2021-02-13] MEDS: ASPIRIN EC 81 MG TABLET PO SCH (12:12)
[2021-02-13] MEDS: SODIUM HYPOCHLORITE 0.25% IRRIG 473 ML BOTTLE TOP SCH (12:12)
[2021-02-13] MEDS: ATORVASTATIN 10 MG TABLET PO SCH (21:11)
[2021-02-13] MEDS: INSULIN GLARGINE 100 UNIT/ML SUBCUT SCH (21:12)
[2021-02-14] MEDS: VANCOMYCIN INJ 1,250 MG in SODIUM CHLORIDE 0.9% 250 ML IV SCH ×2 (02:46→15:03)
[2021-02-14 05:23] LABS: Basophils % 0.3 % (0.0-0.8); Eosinophils # 0.2 10*3/uL (0.0-0.87); Eosinophils % 1.9 % (0.00-10.9); Hematocrit 25.6 VOL% (42.0-52.0); Hemoglobin 8.3 GM/DL (14.0-18.0); Immature Granulocytes % 1.6 %; Lymphocytes # 1.5 10*3/uL (1.4-4.0); Lymphocytes % 12.1 % (21.2-54.2); Mean Corpuscular HGB Conc 32.4 GM/DL (32-36); Mean Corpuscular Volume 96.6 FL (87-102); Mean Platelet Volume 10.5 FL (9.6-12.0); Monocytes % 8.2 % (1.7-12.7); Neutrophils % 75.9 % (38.7-73.9); Platelet Count 333 T/CUMM (130-400); Red Blood Count 2.65 MC/CUMM (3.8-5.5); Red Cell Distribution Width 12.1 % (9.3-17.3); White Blood Count 12.8 T/CUMM (4-12)
[2021-02-14 05:58] LABS: Osmolality,Calculated 276.8 MOS/KG (273-304); Potassium 3.9 MMOL/L (3.5-5.1)
[2021-02-14] MEDS: SODIUM CHLORIDE 0.9% 1,000 ML IV SCH ×2 (09:02→18:00)
[2021-02-14] MEDS: ASPIRIN EC 81 MG TABLET PO SCH (09:03)
[2021-02-14] MEDS: NICOTINE 21 MG/24 HR PATCH TRANSDERM SCH ×2 (09:03→09:12)
[2021-02-14] MEDS: GABAPENTIN 300 MG CAPSULE PO SCH ×2 (09:03→22:13)
[2021-02-14] MEDS: THIAMINE 100 MG TABLET PO SCH (09:03)
[2021-02-14] MEDS: FOLIC ACID 1 MG TABLET PO SCH (09:03)
[2021-02-14] MEDS: METOPROLOL TARTRATE 50 MG TABLET PO SCH ×2 (09:03→22:13)
[2021-02-14] MEDS: INSULIN REGULAR 100 UNIT/ML SUBCUT SCH ×3 (09:03→18:01)
[2021-02-14] MEDS ORDERED: FLUTICASONE 50 MCG NASAL SPRAY 16 GM BOTTLE BOTH NARES PRN (11:56)
[2021-02-14] MEDS: SODIUM HYPOCHLORITE 0.25% IRRIG 473 ML BOTTLE TOP SCH (16:22)
[2021-02-14] MEDS: glipiZIDE 10 MG TABLET PO SCH (18:03)
[2021-02-14] MEDS: ENOXAPARIN 40 MG/0.4 ML SYRINGE SUBCUT SCH (22:13)
[2021-02-14] MEDS: ATORVASTATIN 10 MG TABLET PO SCH (22:13)
[2021-02-14] MEDS: INSULIN GLARGINE 100 UNIT/ML SUBCUT SCH (22:15)
[2021-02-15] MEDS: VANCOMYCIN INJ 1,250 MG in SODIUM CHLORIDE 0.9% 250 ML IV SCH ×2 (01:42→14:41)
[2021-02-15 05:16] LABS: Basophils % 0.4 % (0.0-0.8); Eosinophils # 0.3 10*3/uL (0.0-0.87); Hemoglobin 9.1 GM/DL (14.0-18.0); Lymphocytes # 1.3 10*3/uL (1.4-4.0); Lymphocytes % 12.5 % (21.2-54.2); Mean Corpuscular HGB Conc 33.7 GM/DL (32-36); Mean Corpuscular Volume 95.4 FL (87-102); Mean Platelet Volume 10.2 FL (9.6-12.0); Monocytes % 7.8 % (1.7-12.7); Neutrophils % 75.3 % (38.7-73.9); Platelet Count 328 T/CUMM (130-400); Red Blood Count 2.83 MC/CUMM (3.8-5.5); Red Cell Distribution Width 12.2 % (9.3-17.3); White Blood Count 10.5 T/CUMM (4-12)
[2021-02-15 05:53] LABS: Calcium 8.3 MG/DL (8.5-10.1); Osmolality,Calculated 272.7 MOS/KG (273-304); Potassium 3.6 MMOL/L (3.5-5.1)
[2021-02-15] MEDS: GABAPENTIN 300 MG CAPSULE PO SCH ×2 (10:07→20:34)
[2021-02-15] MEDS: FOLIC ACID 1 MG TABLET PO SCH (10:07)
[2021-02-15] MEDS: glipiZIDE 10 MG TABLET PO SCH ×2 (10:07→17:55)
[2021-02-15] MEDS: ASPIRIN EC 81 MG TABLET PO SCH (10:07)
[2021-02-15] MEDS: THIAMINE 100 MG TABLET PO SCH (10:08)
[2021-02-15] MEDS: METOPROLOL TARTRATE 50 MG TABLET PO SCH ×2 (10:08→20:34)
[2021-02-15] MEDS: NICOTINE 21 MG/24 HR PATCH TRANSDERM SCH (10:09)
[2021-02-15] MEDS: INSULIN REGULAR 100 UNIT/ML SUBCUT SCH ×3 (10:11→18:34)
[2021-02-15] MEDS ORDERED: TUBERCULIN SKIN TEST 0.1 ML SYRINGE INTRADERM ONE (15:00)
[2021-02-15] MEDS: SODIUM HYPOCHLORITE 0.25% IRRIG 473 ML BOTTLE TOP SCH (18:27)
[2021-02-15] MEDS: ATORVASTATIN 10 MG TABLET PO SCH (20:34)
[2021-02-15] MEDS: ENOXAPARIN 40 MG/0.4 ML SYRINGE SUBCUT SCH (20:34)
[2021-02-15] MEDS: INSULIN GLARGINE 100 UNIT/ML SUBCUT SCH (21:51)
[2021-02-16] MEDS: VANCOMYCIN INJ 1,250 MG in SODIUM CHLORIDE 0.9% 250 ML IV SCH (01:37)
[2021-02-16] MEDS: INSULIN REGULAR 100 UNIT/ML SUBCUT SCH ×2 (08:34→11:32)
[2021-02-16] MEDS: THIAMINE 100 MG TABLET PO SCH (09:52)
[2021-02-16] MEDS: METOPROLOL TARTRATE 50 MG TABLET PO SCH (09:52)
[2021-02-16] MEDS: FOLIC ACID 1 MG TABLET PO SCH (09:52)
[2021-02-16] MEDS: ASPIRIN EC 81 MG TABLET PO SCH (09:52)
[2021-02-16] MEDS: GABAPENTIN 300 MG CAPSULE PO SCH (09:52)
[2021-02-16] MEDS: NICOTINE 21 MG/24 HR PATCH TRANSDERM SCH (09:55)
[2021-02-16] MEDS: glipiZIDE 10 MG TABLET PO SCH (11:12)
[2021-02-16 11:31] VITALS: BP 124/58
[2021-02-16] MEDS: SODIUM HYPOCHLORITE 0.25% IRRIG 473 ML BOTTLE TOP SCH (13:40)
[2021-02-16] MEDS ORDERED: DOXYCYCLINE HYCLATE 100 MG CAPSULE PO SCH (21:00)
== END 2021-02-16 15:00 | DRG 240 ==
LOC: N.EDINP 09:36 → N.ED 09:36 → N.5E 17:35 → SUATTDRO 02-10 15:05
PROVIDERS: ADMIT Internal Medicine; ATTEND Internal Medicine

== ENCOUNTER 2021-08-14 18:21 | Inpatient (IN) ==
[2021-08-14] MEDS ORDERED: MORPHINE 2 MG/1 ML SYRINGE IV STA (18:57)
[2021-08-14] MEDS ORDERED: SODIUM CHLORIDE 0.9% 1,000 ML IV STA (18:57)
[2021-08-14] MEDS ORDERED: PIPERACILLIN/TAZOBACTAM 3,375 MG in SODIUM CHLORIDE 0.9% 100 ML IV STA (18:57)
[2021-08-14 19:58] LABS: Basophils % 0.1 % (0.0-0.8); Eosinophils % 0.2 % (0.00-10.9); Hematocrit 28.4 VOL% (42.0-52.0); Hemoglobin 8.6 GM/DL (14.0-18.0); Immature Granulocytes % 0.7 %; Immature Granulocytes Absolute 0.12 #; Lymphocytes # 1.3 10*3/uL (1.4-4.0); Mean Corpuscular HGB Conc 30.3 GM/DL (32-36); Mean Corpuscular Volume 90.7 FL (87-102); Mean Platelet Volume 9.9 FL (9.6-12.0); Monocytes % 8.5 % (1.7-12.7); Neutrophils % 82.5 % (38.7-73.9); Platelet Count 340 T/CUMM (130-400); Red Blood Count 3.13 MC/CUMM (3.8-5.5); Red Cell Distribution Width 13.6 % (9.3-17.3); White Blood Count 16.2 T/CUMM (4-12)
[2021-08-14 20:04] LABS: Albumin 2.1 G/DL (3.4-5.0); Bilirubin,Total 1.3 MG/DL (0.20-1.00); Calcium 8.9 MG/DL (8.5-10.1); Osmolality,Calculated 274.4 MOS/KG (273-304); Potassium 3.6 MMOL/L (3.5-5.1); Total Protein 7.5 G/DL (6.4-8.2)
[2021-08-14] MEDS ORDERED: ACETAMINOPHEN 500 MG TABLET ONE (20:12)
[2021-08-14] MEDS ORDERED: ACETAMINOPHEN 500 MG TABLET PO STA (20:21)
[2021-08-14] MEDS ORDERED: GLUCAGON 1 MG VIAL IM PRN (21:47)
[2021-08-14] MEDS ORDERED: DEXTROSE 50% 25 GM/50 ML VIAL IV PRN (21:47)
[2021-08-14] MEDS ORDERED: ONDANSETRON 4 MG/2 ML VIAL IV PRN (21:47)
[2021-08-14] MEDS ORDERED: VANCOMYCIN INJ 1,000 MG in SODIUM CHLORIDE 0.9% 250 ML IV SCH (22:00)
[2021-08-14] MEDS ORDERED: VANCOMYCIN 1,000 MG VIAL ONE (23:05)
[2021-08-14] MEDS: SODIUM CHLORIDE 0.9% 1,000 ML IV SCH (23:14)
[2021-08-15] MEDS: PIPERACILLIN/TAZOBACTAM 3,375 MG in SODIUM CHLORIDE 0.9% 100 ML IV SCH ×2 (04:30→12:37)
[2021-08-15 04:42] LABS: Basophils % 0.2 % (0.0-0.8); Eosinophils # 0.2 10*3/uL (0.0-0.87); Eosinophils % 1.4 % (0.00-10.9); Hematocrit 25.7 VOL% (42.0-52.0); Hemoglobin 8.1 GM/DL (14.0-18.0); Immature Granulocytes % 1.1 %; Immature Granulocytes Absolute 0.16 #; Lymphocytes # 1.1 10*3/uL (1.4-4.0); Lymphocytes % 7.4 % (21.2-54.2); Mean Corpuscular HGB Conc 31.5 GM/DL (32-36); Mean Corpuscular Volume 88.9 FL (87-102); Mean Platelet Volume 9.7 FL (9.6-12.0); Monocytes % 8.7 % (1.7-12.7); Neutrophils % 81.2 % (38.7-73.9); Platelet Count 283 T/CUMM (130-400); Red Blood Count 2.89 MC/CUMM (3.8-5.5); Red Cell Distribution Width 13.5 % (9.3-17.3); White Blood Count 15.1 T/CUMM (4-12)
[2021-08-15 05:05] LABS: Calcium 8.5 MG/DL (8.5-10.1); Potassium 3.4 MMOL/L (3.5-5.1)
[2021-08-15 05:43] LABS: Bilirubin,Urine Negative (Negative); Blood, Urine Small mg/dL (Negative); Glucose,Urine (UA) 150 mg/dL (Negative); Ketones,Urine Negative (Negative); Mucus,Urine Occasional /LPF (Occasional); Nitrite,Urine Negative (Negative); Protein,Urine >=500 MG/DL; RBC,Urine 6 /HPF (0-4); Squamous Epithelial Cell,Urine Occasional /HPF (0-10); Urine Appearance CLEAR (Clear); Urine Color Amber (Yellow); Urine Specific Gravity 1.024 (1.001-1.035)
[2021-08-15] MEDS: INSULIN LISPRO 100 UNIT/ML SUBCUT SCH ×4 (08:03→22:06)
[2021-08-15] MEDS: INSULIN REGULAR 100 UNIT/ML SUBCUT SCH ×4 (08:03→22:06)
[2021-08-15] MEDS: SODIUM CHLORIDE 0.9% 1,000 ML IV SCH ×2 (08:04→17:51)
[2021-08-15] MEDS: NON-FORMULARY MEDICATION (Empagliflozin [Jardiance] 10 mg Tablet) PO SCH (08:04)
[2021-08-15] MEDS: PANTOPRAZOLE 40 MG TABLET PO SCH (08:04)
[2021-08-15] MEDS: METOPROLOL SUCCINATE XL 50 MG TABLET PO SCH ×2 (08:04→21:18)
[2021-08-15] MEDS: GABAPENTIN 300 MG CAPSULE PO SCH ×2 (08:04→21:18)
[2021-08-15] MEDS: VANCOMYCIN INJ 1,250 MG in SODIUM CHLORIDE 0.9% 250 ML IV SCH ×2 (08:31→20:19)
[2021-08-15] MEDS ORDERED: ENOXAPARIN 40 MG/0.4 ML SYRINGE SUBCUT SCH (09:00)
[2021-08-15] MEDS ORDERED: LIDOCAINE 1% 50 ML VIAL ONE (09:22)
[2021-08-15] MEDS ORDERED: ONDANSETRON 4 MG/2 ML VIAL IV PRN (11:22)
[2021-08-15] MEDS: HYDROmorphone 2 MG/1 ML VIAL IV PRN ×2 (11:34→11:43)
[2021-08-15] MEDS ORDERED: INSULIN GLARGINE 100 UNIT/ML SUBCUT SCH (21:00)
[2021-08-15] MEDS: traMADol 50 MG TABLET PO PRN (21:18)
[2021-08-16] MEDS: PIPERACILLIN/TAZOBACTAM 3,375 MG in SODIUM CHLORIDE 0.9% 100 ML IV SCH ×4 (00:03→22:59)
[2021-08-16] MEDS: SODIUM CHLORIDE 0.9% 1,000 ML IV SCH ×2 (04:25→19:54)
[2021-08-16 05:54] LABS: Basophils % 0.3 % (0.0-0.8); Eosinophils # 0.2 10*3/uL (0.0-0.87); Eosinophils % 1.2 % (0.00-10.9); Hematocrit 23.4 VOL% (42.0-52.0); Hemoglobin 7.3 GM/DL (14.0-18.0); Immature Granulocytes % 1.2 %; Immature Granulocytes Absolute 0.15 #; Lymphocytes # 1.4 10*3/uL (1.4-4.0); Lymphocytes % 11.1 % (21.2-54.2); Mean Corpuscular HGB Conc 31.2 GM/DL (32-36); Mean Corpuscular Volume 90.7 FL (87-102); Mean Platelet Volume 10.1 FL (9.6-12.0); Monocytes % 6.1 % (1.7-12.7); Neutrophils % 80.1 % (38.7-73.9); Platelet Count 235 T/CUMM (130-400); Red Blood Count 2.58 MC/CUMM (3.8-5.5); Red Cell Distribution Width 13.6 % (9.3-17.3)
[2021-08-16 06:54] LABS: Calcium 8.6 MG/DL (8.5-10.1); Osmolality,Calculated 280.1 MOS/KG (273-304); Potassium 4.2 MMOL/L (3.5-5.1)
[2021-08-16] MEDS: traMADol 50 MG TABLET PO PRN ×2 (09:47→21:11)
[2021-08-16] MEDS: VANCOMYCIN INJ 1,250 MG in SODIUM CHLORIDE 0.9% 250 ML IV SCH ×2 (09:48→21:14)
[2021-08-16] MEDS: GABAPENTIN 300 MG CAPSULE PO SCH ×2 (09:48→21:12)
[2021-08-16] MEDS: PANTOPRAZOLE 40 MG TABLET PO SCH (09:49)
[2021-08-16] MEDS: METOPROLOL SUCCINATE XL 50 MG TABLET PO SCH ×2 (09:49→21:12)
[2021-08-16] MEDS: NON-FORMULARY MEDICATION (Empagliflozin [Jardiance] 10 mg Tablet) PO SCH (11:00)
[2021-08-16] MEDS: INSULIN REGULAR 100 UNIT/ML SUBCUT SCH ×4 (11:00→22:49)
[2021-08-16] MEDS: SODIUM HYPOCHLORITE 0.25% IRRIG 473 ML BOTTLE TOP SCH (11:05)
[2021-08-16] MEDS: INSULIN LISPRO 100 UNIT/ML SUBCUT SCH (16:23)
[2021-08-16] MEDS ORDERED: INSULIN GLARGINE 100 UNIT/ML SUBCUT SCH (21:00)
[2021-08-16] MEDS: ACETAMINOPHEN 325 MG TABLET PO PRN (21:11)
[2021-08-17] MEDS: SODIUM CHLORIDE 0.9% 1,000 ML IV SCH ×3 (01:33→19:36)
[2021-08-17] MEDS: PIPERACILLIN/TAZOBACTAM 3,375 MG in SODIUM CHLORIDE 0.9% 100 ML IV SCH ×3 (03:47→19:46)
[2021-08-17] MEDS: INSULIN REGULAR 100 UNIT/ML SUBCUT SCH ×4 (06:59→20:26)
[2021-08-17] MEDS: NON-FORMULARY MEDICATION (Empagliflozin [Jardiance] 10 mg Tablet) PO SCH (09:50)
[2021-08-17] MEDS: VANCOMYCIN INJ 1,250 MG in SODIUM CHLORIDE 0.9% 250 ML IV SCH ×2 (09:52→23:47)
[2021-08-17] MEDS: traMADol 50 MG TABLET PO PRN (09:56)
[2021-08-17] MEDS: METOPROLOL SUCCINATE XL 50 MG TABLET PO SCH ×2 (09:57→20:20)
[2021-08-17] MEDS: PANTOPRAZOLE 40 MG TABLET PO SCH (09:59)
[2021-08-17] MEDS: GABAPENTIN 300 MG CAPSULE PO SCH ×2 (09:59→20:25)
[2021-08-17] MEDS: SODIUM HYPOCHLORITE 0.25% IRRIG 473 ML BOTTLE TOP SCH (11:38)
[2021-08-17] MEDS: ACETAMINOPHEN 325 MG TABLET PO PRN (17:22)
[2021-08-17] MEDS ORDERED: INSULIN GLARGINE 100 UNIT/ML SUBCUT SCH (21:00)
[2021-08-18] MEDS: PIPERACILLIN/TAZOBACTAM 3,375 MG in SODIUM CHLORIDE 0.9% 100 ML IV SCH ×2 (03:09→18:25)
[2021-08-18] MEDS: ACETAMINOPHEN 325 MG TABLET PO PRN ×4 (03:27→23:45)
[2021-08-18 06:28] LABS: Basophils % 0.2 % (0.0-0.8); Eosinophils # 0.2 10*3/uL (0.0-0.87); Eosinophils % 1.2 % (0.00-10.9); Hematocrit 21.2 VOL% (42.0-52.0); Immature Granulocytes % 1.2 %; Immature Granulocytes Absolute 0.17 #; Mean Corpuscular HGB Conc 29.7 GM/DL (32-36); Mean Corpuscular Volume 90.6 FL (87-102); Mean Platelet Volume 10.5 FL (9.6-12.0); Monocytes % 7.3 % (1.7-12.7); Neutrophils % 83.1 % (38.7-73.9); Platelet Count 265 T/CUMM (130-400); Red Blood Count 2.34 MC/CUMM (3.8-5.5); Red Cell Distribution Width 14.1 % (9.3-17.3); White Blood Count 14.7 T/CUMM (4-12)
[2021-08-18 06:49] LABS: Calcium 8.4 MG/DL (8.5-10.1); Osmolality,Calculated 271.8 MOS/KG (273-304); Potassium 3.5 MMOL/L (3.5-5.1)
[2021-08-18 07:00] LABS: Hemoglobin 6.3 GM/DL (14.0-18.0)
[2021-08-18 07:03] LABS: Anisocytosis 1+; Macrocytosis Slight; Platelet Estimate Normal
[2021-08-18] MEDS ORDERED: SODIUM CHLORIDE 0.9% 1,000 ML IV PRN (07:32)
[2021-08-18] MEDS: INSULIN REGULAR 100 UNIT/ML SUBCUT SCH ×4 (08:02→20:33)
[2021-08-18 09:16] LABS: % Iron Saturation 24.6 % (18-50); Ferritin 621.4 ng/mL (26-388)
[2021-08-18 09:44] LABS: Basophils % 0.2 % (0.0-0.8); Eosinophils # 0.2 10*3/uL (0.0-0.87); Hematocrit 23.8 VOL% (42.0-52.0); Hemoglobin 7.3 GM/DL (14.0-18.0); Immature Granulocytes % 1.4 %; Immature Granulocytes Absolute 0.24 #; Lymphocytes % 5.5 % (21.2-54.2); Mean Corpuscular HGB Conc 30.7 GM/DL (32-36); Mean Corpuscular Volume 89.1 FL (87-102); Mean Platelet Volume 10.5 FL (9.6-12.0); Monocytes % 7.5 % (1.7-12.7); Neutrophils % 84.4 % (38.7-73.9); Platelet Count 306 T/CUMM (130-400); Red Blood Count 2.67 MC/CUMM (3.8-5.5); Red Cell Distribution Width 14.1 % (9.3-17.3); White Blood Count 17.5 T/CUMM (4-12)
[2021-08-18] MEDS: PANTOPRAZOLE 40 MG TABLET PO SCH (09:58)
[2021-08-18] MEDS: GABAPENTIN 300 MG CAPSULE PO SCH ×2 (09:58→20:33)
[2021-08-18] MEDS: METOPROLOL SUCCINATE XL 50 MG TABLET PO SCH ×2 (09:58→20:33)
[2021-08-18] MEDS: SODIUM HYPOCHLORITE 0.25% IRRIG 473 ML BOTTLE TOP SCH (09:59)
[2021-08-18] MEDS: traMADol 50 MG TABLET PO PRN (10:00)
[2021-08-18 10:12] LABS: Folate 9.63 NG/ML (5.38-24.0); Vitamin B12 761 PG/ML (211-911)
[2021-08-18] MEDS: NON-FORMULARY MEDICATION (Empagliflozin [Jardiance] 10 mg Tablet) PO SCH (10:39)
[2021-08-18 10:52] LABS: Sedimentation Rate-Westergren 132 MM/HR (0-20)
[2021-08-18 11:57] LABS: Hemoglobin A1 (Alkaline) 97.9 % (96.5-98.5); Hemoglobin A2 (Alkaline) 2.1 % (1.5-3.5)
[2021-08-18] MEDS: VANCOMYCIN INJ 1,250 MG in SODIUM CHLORIDE 0.9% 250 ML IV SCH (14:44)
[2021-08-18] MEDS: LINEZOLID INJ 600 MG/300 ML PREMIX IV SCH ×2 (17:17→17:33)
[2021-08-18 18:29] LABS: Hematocrit 26.3 VOL% (42.0-52.0); Hemoglobin 8.2 GM/DL (14.0-18.0)
[2021-08-19] MEDS: PIPERACILLIN/TAZOBACTAM 3,375 MG in SODIUM CHLORIDE 0.9% 100 ML IV SCH ×3 (03:20→18:52)
[2021-08-19 04:16] LABS: Basophils % 0.2 % (0.0-0.8); Eosinophils # 0.3 10*3/uL (0.0-0.87); Eosinophils % 2.5 % (0.00-10.9); Hematocrit 26.3 VOL% (42.0-52.0); Immature Granulocytes % 0.9 %; Immature Granulocytes Absolute 0.11 #; Mean Corpuscular HGB Conc 30.4 GM/DL (32-36); Mean Corpuscular Volume 90.4 FL (87-102); Mean Platelet Volume 10.1 FL (9.6-12.0); Monocytes % 9.8 % (1.7-12.7); Neutrophils % 78.6 % (38.7-73.9); Platelet Count 270 T/CUMM (130-400); Red Blood Count 2.91 MC/CUMM (3.8-5.5); Red Cell Distribution Width 13.7 % (9.3-17.3); White Blood Count 12.5 T/CUMM (4-12)
[2021-08-19 04:33] LABS: Calcium 8.3 MG/DL (8.5-10.1); Osmolality,Calculated 282.5 MOS/KG (273-304); Potassium 3.7 MMOL/L (3.5-5.1)
[2021-08-19] MEDS: SODIUM CHLORIDE 0.9% 1,000 ML IV SCH (04:51)
[2021-08-19] MEDS: LINEZOLID INJ 600 MG/300 ML PREMIX IV SCH ×3 (07:11→17:14)
[2021-08-19] MEDS: METOPROLOL SUCCINATE XL 50 MG TABLET PO SCH ×2 (08:43→20:35)
[2021-08-19] MEDS: PANTOPRAZOLE 40 MG TABLET PO SCH (08:43)
[2021-08-19] MEDS: GABAPENTIN 300 MG CAPSULE PO SCH ×2 (08:43→20:35)
[2021-08-19] MEDS: INSULIN REGULAR 100 UNIT/ML SUBCUT SCH ×4 (08:43→20:34)
[2021-08-19] MEDS: SODIUM HYPOCHLORITE 0.25% IRRIG 473 ML BOTTLE TOP SCH (08:44)
[2021-08-19] MEDS: oxyCODONE/ACETAMINOPHEN 5-325 MG TABLET PO PRN (16:02)
[2021-08-19] MEDS: ACETAMINOPHEN 325 MG TABLET PO PRN (17:14)
[2021-08-20] MEDS: PIPERACILLIN/TAZOBACTAM 3,375 MG in SODIUM CHLORIDE 0.9% 100 ML IV SCH ×3 (01:33→18:13)
[2021-08-20] MEDS: oxyCODONE/ACETAMINOPHEN 5-325 MG TABLET PO PRN ×2 (01:37→09:16)
[2021-08-20] MEDS: ACETAMINOPHEN 325 MG TABLET PO PRN ×2 (03:30→11:49)
[2021-08-20] MEDS ORDERED: MIDAZOLAM 2 MG/2 ML VIAL ONE (05:24)
[2021-08-20] MEDS ORDERED: LIDOCAINE 2% 5 ML VIAL ONE (05:24)
[2021-08-20] MEDS ORDERED: propofoL 200 MG/20 ML VIAL IV ONE ×2 (05:24→07:33)
[2021-08-20] MEDS ORDERED: fentaNYL 100 MCG/2 ML VIAL ONE (05:24)
[2021-08-20 05:40] LABS: Basophils % 0.2 % (0.0-0.8); Eosinophils # 0.3 10*3/uL (0.0-0.87); Eosinophils % 2.1 % (0.00-10.9); Hematocrit 26.8 VOL% (42.0-52.0); Hemoglobin 8.2 GM/DL (14.0-18.0); Immature Granulocytes % 1.2 %; Immature Granulocytes Absolute 0.16 #; Lymphocytes # 1.2 10*3/uL (1.4-4.0); Lymphocytes % 8.9 % (21.2-54.2); Mean Corpuscular HGB Conc 30.6 GM/DL (32-36); Mean Corpuscular Volume 90.2 FL (87-102); Mean Platelet Volume 10.1 FL (9.6-12.0); Monocytes % 8.3 % (1.7-12.7); Neutrophils % 79.3 % (38.7-73.9); Platelet Count 324 T/CUMM (130-400); Red Blood Count 2.97 MC/CUMM (3.8-5.5); Red Cell Distribution Width 13.8 % (9.3-17.3); White Blood Count 13.3 T/CUMM (4-12)
[2021-08-20 06:08] LABS: Calcium 8.2 MG/DL (8.5-10.1); Osmolality,Calculated 278.7 MOS/KG (273-304); Potassium 4.2 MMOL/L (3.5-5.1)
[2021-08-20] MEDS ORDERED: BUPIVACAINE MPF 0.25% 30 ML VIAL ONE (07:04)
[2021-08-20] MEDS ORDERED: LIDOCAINE 1% 50 ML VIAL ONE (07:05)
[2021-08-20] MEDS: INSULIN REGULAR 100 UNIT/ML SUBCUT SCH ×4 (07:30→20:46)
[2021-08-20] MEDS ORDERED: PHENYLEPHRINE 1 MG/10 ML SYRINGE IV ONE (07:33)
[2021-08-20] MEDS: LINEZOLID INJ 600 MG/300 ML PREMIX IV SCH ×2 (08:14→16:35)
[2021-08-20] MEDS: PANTOPRAZOLE 40 MG TABLET PO SCH (09:15)
[2021-08-20] MEDS: METOPROLOL SUCCINATE XL 50 MG TABLET PO SCH ×2 (09:15→20:46)
[2021-08-20] MEDS: GABAPENTIN 300 MG CAPSULE PO SCH ×2 (09:15→20:47)
[2021-08-20] MEDS: SODIUM HYPOCHLORITE 0.25% IRRIG 473 ML BOTTLE TOP SCH (09:47)
[2021-08-21] MEDS: PIPERACILLIN/TAZOBACTAM 3,375 MG in SODIUM CHLORIDE 0.9% 100 ML IV SCH ×3 (01:50→17:56)
[2021-08-21 05:51] LABS: Basophils % 0.2 % (0.0-0.8); Eosinophils # 0.4 10*3/uL (0.0-0.87); Eosinophils % 3.2 % (0.00-10.9); Hematocrit 25.4 VOL% (42.0-52.0); Immature Granulocytes % 0.7 %; Immature Granulocytes Absolute 0.08 #; Lymphocytes # 1.5 10*3/uL (1.4-4.0); Lymphocytes % 13.2 % (21.2-54.2); Mean Corpuscular HGB Conc 31.5 GM/DL (32-36); Mean Corpuscular Volume 90.4 FL (87-102); Mean Platelet Volume 9.8 FL (9.6-12.0); Monocytes % 8.4 % (1.7-12.7); Neutrophils % 74.3 % (38.7-73.9); Platelet Count 365 T/CUMM (130-400); Red Blood Count 2.81 MC/CUMM (3.8-5.5)
[2021-08-21] MEDS: LINEZOLID INJ 600 MG/300 ML PREMIX IV SCH ×2 (06:04→16:45)
[2021-08-21 06:14] LABS: Calcium 8.5 MG/DL (8.5-10.1); Osmolality,Calculated 283.4 MOS/KG (273-304)
[2021-08-21] MEDS: METOPROLOL SUCCINATE XL 50 MG TABLET PO SCH ×2 (09:11→21:36)
[2021-08-21] MEDS: PANTOPRAZOLE 40 MG TABLET PO SCH (09:12)
[2021-08-21] MEDS: GABAPENTIN 300 MG CAPSULE PO SCH ×2 (09:13→21:36)
[2021-08-21] MEDS: INSULIN REGULAR 100 UNIT/ML SUBCUT SCH ×4 (09:13→21:36)
[2021-08-21] MEDS: oxyCODONE/ACETAMINOPHEN 5-325 MG TABLET PO PRN ×2 (11:10→16:45)
[2021-08-21] MEDS: SODIUM HYPOCHLORITE 0.25% IRRIG 473 ML BOTTLE TOP SCH (12:10)
[2021-08-22] MEDS: PIPERACILLIN/TAZOBACTAM 3,375 MG in SODIUM CHLORIDE 0.9% 100 ML IV SCH ×2 (03:40→13:31)
[2021-08-22 05:54] LABS: Basophils % 0.2 % (0.0-0.8); Eosinophils # 0.4 10*3/uL (0.0-0.87); Eosinophils % 3.9 % (0.00-10.9); Hematocrit 25.9 VOL% (42.0-52.0); Hemoglobin 7.9 GM/DL (14.0-18.0); Immature Granulocytes % 0.6 %; Immature Granulocytes Absolute 0.06 #; Lymphocytes # 1.3 10*3/uL (1.4-4.0); Lymphocytes % 13.4 % (21.2-54.2); Mean Corpuscular HGB Conc 30.5 GM/DL (32-36); Mean Corpuscular Volume 89.9 FL (87-102); Mean Platelet Volume 9.6 FL (9.6-12.0); Monocytes % 7.4 % (1.7-12.7); Neutrophils % 74.5 % (38.7-73.9); Platelet Count 381 T/CUMM (130-400); Red Blood Count 2.88 MC/CUMM (3.8-5.5); Red Cell Distribution Width 14.1 % (9.3-17.3)
[2021-08-22] MEDS: LINEZOLID INJ 600 MG/300 ML PREMIX IV SCH ×3 (06:00→22:14)
[2021-08-22 06:13] LABS: Calcium 8.6 MG/DL (8.5-10.1); Osmolality,Calculated 280.4 MOS/KG (273-304); Potassium 3.9 MMOL/L (3.5-5.1)
[2021-08-22] MEDS: PANTOPRAZOLE 40 MG TABLET PO SCH (08:00)
[2021-08-22] MEDS: GABAPENTIN 300 MG CAPSULE PO SCH ×2 (08:00→22:14)
[2021-08-22] MEDS: METOPROLOL SUCCINATE XL 50 MG TABLET PO SCH ×2 (08:00→22:13)
[2021-08-22] MEDS: INSULIN REGULAR 100 UNIT/ML SUBCUT SCH ×4 (08:00→22:14)
[2021-08-22] MEDS: SODIUM HYPOCHLORITE 0.25% IRRIG 473 ML BOTTLE TOP SCH (08:04)
[2021-08-22] MEDS: oxyCODONE/ACETAMINOPHEN 5-325 MG TABLET PO PRN (17:05)
[2021-08-23 06:24] LABS: Basophils % 0.2 % (0.0-0.8); Eosinophils # 0.3 10*3/uL (0.0-0.87); Eosinophils % 3.3 % (0.00-10.9); Hematocrit 27.6 VOL% (42.0-52.0); Hemoglobin 8.3 GM/DL (14.0-18.0); Immature Granulocytes % 0.7 %; Immature Granulocytes Absolute 0.06 #; Lymphocytes # 1.4 10*3/uL (1.4-4.0); Lymphocytes % 16.7 % (21.2-54.2); Mean Corpuscular HGB Conc 30.1 GM/DL (32-36); Mean Corpuscular Volume 91.7 FL (87-102); Mean Platelet Volume 9.5 FL (9.6-12.0); Monocytes % 8.1 % (1.7-12.7); Platelet Count 402 T/CUMM (130-400); Red Blood Count 3.01 MC/CUMM (3.8-5.5); Red Cell Distribution Width 14.1 % (9.3-17.3); White Blood Count 8.4 T/CUMM (4-12)
[2021-08-23 06:38] LABS: Calcium 8.6 MG/DL (8.5-10.1); Osmolality,Calculated 280.3 MOS/KG (273-304); Potassium 3.9 MMOL/L (3.5-5.1)
[2021-08-23] MEDS: GABAPENTIN 300 MG CAPSULE PO SCH ×2 (08:57→22:17)
[2021-08-23] MEDS: LINEZOLID INJ 600 MG/300 ML PREMIX IV SCH ×2 (08:57→22:17)
[2021-08-23] MEDS: METOPROLOL SUCCINATE XL 50 MG TABLET PO SCH ×2 (08:57→22:17)
[2021-08-23] MEDS: PANTOPRAZOLE 40 MG TABLET PO SCH (08:57)
[2021-08-23] MEDS: INSULIN REGULAR 100 UNIT/ML SUBCUT SCH ×4 (09:10→22:18)
[2021-08-23] MEDS ORDERED: INFLUENZA VIRUS VACCINE 0.5 ML SYRINGE IM ONE (10:56)
[2021-08-23] MEDS: SODIUM HYPOCHLORITE 0.25% IRRIG 473 ML BOTTLE TOP SCH (17:01)
[2021-08-23] MEDS: ACETAMINOPHEN 325 MG TABLET PO PRN (22:17)
[2021-08-24 05:31] LABS: Basophils % 0.3 % (0.0-0.8); Eosinophils # 0.2 10*3/uL (0.0-0.87); Eosinophils % 2.7 % (0.00-10.9); Hematocrit 29.4 VOL% (42.0-52.0); Immature Granulocytes % 0.5 %; Immature Granulocytes Absolute 0.04 #; Lymphocytes # 1.4 10*3/uL (1.4-4.0); Lymphocytes % 18.7 % (21.2-54.2); Mean Corpuscular HGB Conc 30.6 GM/DL (32-36); Mean Corpuscular Volume 91.9 FL (87-102); Mean Platelet Volume 9.2 FL (9.6-12.0); Monocytes % 9.1 % (1.7-12.7); Neutrophils % 68.7 % (38.7-73.9); Platelet Count 414 T/CUMM (130-400); Red Cell Distribution Width 13.8 % (9.3-17.3); White Blood Count 7.5 T/CUMM (4-12)
[2021-08-24 05:45] LABS: Calcium 8.7 MG/DL (8.5-10.1); Osmolality,Calculated 279.4 MOS/KG (273-304); Potassium 3.8 MMOL/L (3.5-5.1)
[2021-08-24] MEDS: INSULIN REGULAR 100 UNIT/ML SUBCUT SCH ×4 (09:07→22:28)
[2021-08-24] MEDS: METOPROLOL SUCCINATE XL 50 MG TABLET PO SCH ×2 (09:08→20:53)
[2021-08-24] MEDS: SODIUM HYPOCHLORITE 0.25% IRRIG 473 ML BOTTLE TOP SCH (09:08)
[2021-08-24] MEDS: PANTOPRAZOLE 40 MG TABLET PO SCH ×2 (09:08→20:53)
[2021-08-24] MEDS: GABAPENTIN 300 MG CAPSULE PO SCH ×2 (09:08→20:53)
[2021-08-24] MEDS ORDERED: fentaNYL 100 MCG/2 ML VIAL ONE (09:29)
[2021-08-24] MEDS ORDERED: SEVOFLURANE 1 UNIT/15 MINUTE INH ONE (10:13)
[2021-08-24] MEDS ORDERED: ONDANSETRON 4 MG/2 ML VIAL ONE (10:13)
[2021-08-24] MEDS ORDERED: propofoL 200 MG/20 ML VIAL IV ONE (10:13)
[2021-08-24] MEDS ORDERED: LIDOCAINE 2% 5 ML VIAL ONE (10:13)
[2021-08-24] MEDS ORDERED: PHENYLEPHRINE 1 MG/10 ML SYRINGE IV ONE (10:13)
[2021-08-24] MEDS ORDERED: ONDANSETRON ODT 4 MG TABLET PO PRN (10:30)
[2021-08-24] MEDS ORDERED: ONDANSETRON 4 MG/2 ML VIAL IV PRN (10:34)
[2021-08-24] MEDS ORDERED: HYDROmorphone 2 MG/1 ML VIAL IV PRN (10:34)
[2021-08-24] MEDS ORDERED: fentaNYL 2 MCG/ROPIV 0.2% EPID 100 ML EPIDURAL ONE (10:38)
[2021-08-24] MEDS: fentaNYL 2 MCG/ROPIV 0.2% EPID 100 ML EPIDURAL SCH (11:00)
[2021-08-24] MEDS: LINEZOLID INJ 600 MG/300 ML PREMIX IV SCH ×2 (12:02→20:53)
[2021-08-25] MEDS: fentaNYL 2 MCG/ROPIV 0.2% EPID 100 ML EPIDURAL SCH ×3 (03:45→23:32)
[2021-08-25 05:43] LABS: Basophils % 0.2 % (0.0-0.8); Eosinophils # 0.2 10*3/uL (0.0-0.87); Eosinophils % 2.7 % (0.00-10.9); Immature Granulocytes % 0.5 %; Immature Granulocytes Absolute 0.04 #; Lymphocytes % 24.6 % (21.2-54.2); Mean Corpuscular HGB Conc 30.9 GM/DL (32-36); Mean Corpuscular Volume 92.4 FL (87-102); Mean Platelet Volume 9.2 FL (9.6-12.0); Monocytes % 9.2 % (1.7-12.7); Neutrophils % 62.8 % (38.7-73.9); Platelet Count 387 T/CUMM (130-400)
[2021-08-25 05:49] LABS: Red Blood Count 2.49 MC/CUMM (3.8-5.5)
[2021-08-25 05:50] LABS: Hemoglobin 7.1 GM/DL (14.0-18.0)
[2021-08-25 05:52] LABS: Calcium 8.2 MG/DL (8.5-10.1); Osmolality,Calculated 276.8 MOS/KG (273-304); Potassium 4.3 MMOL/L (3.5-5.1)
[2021-08-25] MEDS: INSULIN REGULAR 100 UNIT/ML SUBCUT SCH ×4 (07:34→21:07)
[2021-08-25] MEDS: MULTIVITAMIN (CENTRUM) TABLET PO SCH (08:22)
[2021-08-25] MEDS: PANTOPRAZOLE 40 MG TABLET PO SCH ×3 (08:22→16:18)
[2021-08-25] MEDS: METOPROLOL SUCCINATE XL 50 MG TABLET PO SCH ×2 (08:22→21:06)
[2021-08-25] MEDS: ASPIRIN CHEW 81 MG TABLET PO SCH (08:22)
[2021-08-25] MEDS: GABAPENTIN 300 MG CAPSULE PO SCH ×2 (08:22→21:06)
[2021-08-25] MEDS: MAGNESIUM OXIDE 400 MG TABLET PO SCH (08:23)
[2021-08-25] MEDS: LINEZOLID INJ 600 MG/300 ML PREMIX IV SCH ×2 (08:23→21:07)
[2021-08-25] MEDS: CYANOCOBALAMIN 500 MCG TABLET PO SCH (08:23)
[2021-08-25] MEDS: SODIUM HYPOCHLORITE 0.25% IRRIG 473 ML BOTTLE TOP SCH (15:20)
[2021-08-25] MEDS: oxyCODONE/ACETAMINOPHEN 5-325 MG TABLET PO PRN (21:05)
[2021-08-26 06:02] LABS: Basophils % 0.3 % (0.0-0.8); Eosinophils # 0.2 10*3/uL (0.0-0.87); Eosinophils % 3.3 % (0.00-10.9); Hematocrit 22.6 VOL% (42.0-52.0); Hemoglobin 6.8 GM/DL (14.0-18.0); Immature Granulocytes % 0.4 %; Immature Granulocytes Absolute 0.03 #; Lymphocytes # 1.6 10*3/uL (1.4-4.0); Lymphocytes % 23.2 % (21.2-54.2); Mean Corpuscular HGB Conc 30.1 GM/DL (32-36); Mean Corpuscular Volume 91.5 FL (87-102); Mean Platelet Volume 9.1 FL (9.6-12.0); Neutrophils % 63.8 % (38.7-73.9); Platelet Count 368 T/CUMM (130-400); Red Blood Count 2.47 MC/CUMM (3.8-5.5); Red Cell Distribution Width 13.8 % (9.3-17.3); White Blood Count 6.7 T/CUMM (4-12)
[2021-08-26 06:21] LABS: Calcium 8.2 MG/DL (8.5-10.1); Osmolality,Calculated 280.4 MOS/KG (273-304); Potassium 4.2 MMOL/L (3.5-5.1)
[2021-08-26] MEDS: ASPIRIN CHEW 81 MG TABLET PO SCH (09:29)
[2021-08-26] MEDS: MULTIVITAMIN (CENTRUM) TABLET PO SCH (09:29)
[2021-08-26] MEDS: GABAPENTIN 300 MG CAPSULE PO SCH ×2 (09:29→21:23)
[2021-08-26] MEDS: MAGNESIUM OXIDE 400 MG TABLET PO SCH (09:29)
[2021-08-26] MEDS: CYANOCOBALAMIN 500 MCG TABLET PO SCH (09:29)
[2021-08-26] MEDS: METOPROLOL SUCCINATE XL 50 MG TABLET PO SCH ×2 (09:29→21:23)
[2021-08-26] MEDS: PANTOPRAZOLE 40 MG TABLET PO SCH ×2 (09:29→16:46)
[2021-08-26] MEDS: INSULIN REGULAR 100 UNIT/ML SUBCUT SCH ×4 (09:45→21:24)
[2021-08-26] MEDS ORDERED: SODIUM CHLORIDE 0.9% 1,000 ML IV PRN (09:57)
[2021-08-26] MEDS: MORPHINE 2 MG/1 ML SYRINGE IV PRN (16:46)
[2021-08-27] MEDS: PANTOPRAZOLE 40 MG TABLET PO SCH ×2 (09:02→16:54)
[2021-08-27] MEDS: MORPHINE 2 MG/1 ML SYRINGE IV PRN (09:02)
[2021-08-27] MEDS: ASPIRIN CHEW 81 MG TABLET PO SCH (09:02)
[2021-08-27] MEDS: METOPROLOL SUCCINATE XL 50 MG TABLET PO SCH ×2 (09:03→21:50)
[2021-08-27] MEDS: GABAPENTIN 300 MG CAPSULE PO SCH ×2 (09:03→21:50)
[2021-08-27] MEDS: CYANOCOBALAMIN 500 MCG TABLET PO SCH (09:03)
[2021-08-27] MEDS: MAGNESIUM OXIDE 400 MG TABLET PO SCH (09:03)
[2021-08-27] MEDS: MULTIVITAMIN (CENTRUM) TABLET PO SCH (09:03)
[2021-08-27] MEDS: INSULIN REGULAR 100 UNIT/ML SUBCUT SCH ×3 (12:20→21:50)
[2021-08-28] MEDS: INSULIN REGULAR 100 UNIT/ML SUBCUT SCH (08:01)
[2021-08-28] MEDS: MAGNESIUM OXIDE 400 MG TABLET PO SCH (08:59)
[2021-08-28] MEDS: CYANOCOBALAMIN 500 MCG TABLET PO SCH (08:59)
[2021-08-28] MEDS: PANTOPRAZOLE 40 MG TABLET PO SCH (08:59)
[2021-08-28] MEDS: ASPIRIN CHEW 81 MG TABLET PO SCH (08:59)
[2021-08-28] MEDS: MULTIVITAMIN (CENTRUM) TABLET PO SCH (08:59)
[2021-08-28] MEDS: GABAPENTIN 300 MG CAPSULE PO SCH (08:59)
[2021-08-28] MEDS: METOPROLOL SUCCINATE XL 50 MG TABLET PO SCH (09:00)
[2021-08-28 09:14] LABS: Basophils % 0.5 % (0.0-0.8); Eosinophils # 0.3 10*3/uL (0.0-0.87); Hematocrit 30.4 VOL% (42.0-52.0); Immature Granulocytes % 0.4 %; Immature Granulocytes Absolute 0.03 #; Lymphocytes # 1.3 10*3/uL (1.4-4.0); Lymphocytes % 15.6 % (21.2-54.2); Mean Corpuscular HGB Conc 31.6 GM/DL (32-36); Mean Corpuscular Volume 89.4 FL (87-102); Mean Platelet Volume 8.6 FL (9.6-12.0); Monocytes % 8.2 % (1.7-12.7); Neutrophils % 72.3 % (38.7-73.9); Platelet Count 408 T/CUMM (130-400); Red Cell Distribution Width 13.5 % (9.3-17.3); White Blood Count 8.3 T/CUMM (4-12)
[2021-08-28 09:16] LABS: Hemoglobin 9.6 GM/DL (14.0-18.0)
[2021-08-28 12:42] VITALS: BP 186/97
== END 2021-08-28 12:35 | DRG 853 ==
LOC: EDBD → EDUNIT# → N.ED 18:21 → N.EDINP 21:47 → SUATTDRO 21:47 → N.3E 23:26
PROVIDERS: ADMIT Internal Medicine; ATTEND Internal Medicine

== ENCOUNTER 2022-11-05 05:49 | Inpatient (IN) ==
[2022-11-05] MEDS ORDERED: MEROPENEM 1,000 MG in SODIUM CHLORIDE 0.9% 100 ML IV STA (06:35)
[2022-11-05 06:42] LABS: Basophils % 0.2 % (0.0-0.8); Eosinophils # 0.2 10*3/uL (0.0-0.87); Eosinophils % 1.1 % (0.00-10.9); Hemoglobin 7.5 GM/DL (14.0-18.0); Immature Granulocytes % 0.7 %; Lymphocytes # 1.6 10*3/uL (1.4-4.0); Lymphocytes % 11.5 % (21.2-54.2); Mean Corpuscular HGB Conc 31.3 GM/DL (32-36); Mean Corpuscular Volume 93.8 FL (87-102); Mean Platelet Volume 10.1 FL (9.6-12.0); Monocytes # 1.2 10*3/uL (0.11-0.8); Monocytes % 8.6 % (1.7-12.7); Neutrophils % 77.9 % (38.7-73.9); Platelet Count 431 T/CUMM (130-400); Red Blood Count 2.56 MC/CUMM (3.8-5.5); Red Cell Distribution Width 13.2 % (9.3-17.3); White Blood Count 13.6 T/CUMM (4-12)
[2022-11-05] MEDS ORDERED: MEROPENEM 500 MG in SODIUM CHLORIDE 0.9% 100 ML IV STA (06:42)
[2022-11-05 07:07] LABS: Alanine Aminotransferase 10 U/L (16-61); Albumin 1.1 G/DL (3.4-5.0); Alkaline Phosphatase 68 U/L (45-117); Aspartate Amino Transferase 10 U/L (0-37); Bilirubin,Total < 0.39 MG/DL (0.20-1.00); Blood Urea Nitrogen 22 MG/DL (7-18); Carbon Dioxide 24 MMOL/L (21-32); Chloride 106 MMOL/L (98-107); Glucose 283 MG/DL (74-106); Osmolality,Calculated 289.5 MOS/KG (273-304); Sodium 139 MMOL/L (136-145); Total Protein 6.3 G/DL (6.4-8.2)
[2022-11-05 07:33] LABS: PT Patient Result 11.4 SECS (10.1-12.1); Partial Thromboplastin Time 28.5 SECS (23.7-32.9)
[2022-11-05 07:40] LABS: Bacteria,Urine Occasional /HPF (Few); Mucus,Urine Occasional /LPF (Occasional); Squamous Epithelial Cell,Urine Occasional /HPF (0-10); Urine Appearance Clear (Clear); Urine Color Yellow (Yellow)
[2022-11-05 07:41] LABS: Bilirubin,Urine Negative (Negative); Blood, Urine Moderate mg/dL (Negative); Glucose,Urine (UA) 500 mg/dL (Negative); Ketones,Urine Negative (Negative); Nitrite,Urine Negative (Negative); Protein,Urine >=300 mg/dL (Negative); Urine Urobilinogen 0.2 eU/dL (<2.0)
[2022-11-05] MEDS ORDERED: DOCUSATE SODIUM 100 MG CAPSULE PO PRN (08:06)
[2022-11-05] MEDS ORDERED: MORPHINE 2 MG/1 ML SYRINGE IV PRN (08:06)
[2022-11-05] MEDS ORDERED: ACETAMINOPHEN 325 MG TABLET PO PRN (08:06)
[2022-11-05] MEDS ORDERED: hydrALAZINE 20 MG/1 ML VIAL IV PRN (08:06)
[2022-11-05] MEDS: LACTATED RINGERS 1,000 ML IV SCH ×2 (10:23→20:33)
[2022-11-05] MEDS: PANTOPRAZOLE 40 MG TABLET PO SCH (10:24)
[2022-11-05] MEDS: PIPERACILLIN/TAZOBACTAM 3,375 MG in SODIUM CHLORIDE 0.9% 100 ML IV SCH ×2 (10:24→16:15)
[2022-11-05] MEDS ORDERED: propofoL 200 MG/20 ML VIAL IV ONE (10:55)
[2022-11-05] MEDS ORDERED: MIDAZOLAM 2 MG/2 ML VIAL ONE (10:55)
[2022-11-05] MEDS ORDERED: fentaNYL 100 MCG/2 ML VIAL ONE (10:55)
[2022-11-05] MEDS ORDERED: KETAMINE 500 MG/10 ML VIAL ONE (10:55)
[2022-11-05] MEDS ORDERED: LIDOCAINE 2% 5 ML VIAL ONE (10:55)
[2022-11-05] MEDS ORDERED: NICOTINE 21 MG/24 HR PATCH TRANSDERM PRN (11:06)
[2022-11-05] MEDS ORDERED: LACTATED RINGERS 1,000 ML IV SCH (11:30)
[2022-11-05] MEDS ORDERED: BUPIVACAINE MPF 0.25% 10 ML VIAL ONE (11:42)
[2022-11-05] MEDS ORDERED: LIDOCAINE 1% 5 ML VIAL ONE (11:42)
[2022-11-05] MEDS ORDERED: HYDROmorphone 1 MG/1 ML SYRINGE ONE (12:26)
[2022-11-05] MEDS ORDERED: ONDANSETRON 4 MG/2 ML VIAL IV PRN (12:26)
[2022-11-05] MEDS ORDERED: ONDANSETRON 4 MG/2 ML VIAL ONE (12:26)
[2022-11-05] MEDS: HYDROmorphone 1 MG/1 ML SYRINGE IV PRN ×2 (12:27→12:32)
[2022-11-05] MEDS ORDERED: DEXTROSE 10% 250 ML BAG IV PRN (13:05)
[2022-11-05] MEDS ORDERED: GLUCAGON 1 MG VIAL IM PRN (13:05)
[2022-11-05] MEDS ORDERED: SODIUM CHLORIDE 0.9% 1,000 ML IV PRN (15:12)
[2022-11-05 15:43] LABS: Hematocrit 21.7 VOL% (42.0-52.0)
[2022-11-05] MEDS ORDERED: MAGNESIUM SULF RIDER 4 GM/100 ML PREMIX IV PRN (15:47)
[2022-11-05] MEDS ORDERED: MAGNESIUM SULF RIDER 2 GM/50 ML PREMIX IV PRN (15:47)
[2022-11-05] MEDS: POTASSIUM CHLORIDE 20 MEQ TABLET PO PRN ×3 (16:15→22:06)
[2022-11-05] MEDS: INSULIN REGULAR 100 UNIT/ML SUBCUT SCH ×2 (16:16→20:50)
[2022-11-05] MEDS ORDERED: VANCOMYCIN INJ 1,000 MG in SODIUM CHLORIDE 0.9% 250 ML IV ONE (17:00)
[2022-11-05] MEDS: ASCORBIC ACID 500 MG TABLET PO SCH (20:32)
[2022-11-06] MEDS: PIPERACILLIN/TAZOBACTAM 3,375 MG in SODIUM CHLORIDE 0.9% 100 ML IV SCH ×3 (01:21→17:41)
[2022-11-06] MEDS: POTASSIUM CHLORIDE 20 MEQ TABLET PO PRN ×2 (01:43→08:08)
[2022-11-06 05:33] LABS: Basophils % 0.2 % (0.0-0.8); Eosinophils # 0.3 10*3/uL (0.0-0.87); Eosinophils % 2.2 % (0.00-10.9); Hematocrit 27.2 VOL% (42.0-52.0); Hemoglobin 8.6 GM/DL (14.0-18.0); Immature Granulocytes % 0.8 %; Lymphocytes # 1.8 10*3/uL (1.4-4.0); Lymphocytes % 14.7 % (21.2-54.2); Mean Corpuscular HGB Conc 31.6 GM/DL (32-36); Mean Corpuscular Volume 94.4 FL (87-102); Mean Platelet Volume 9.7 FL (9.6-12.0); Monocytes % 8.4 % (1.7-12.7); Neutrophils % 73.7 % (38.7-73.9); Platelet Count 416 T/CUMM (130-400); Red Blood Count 2.88 MC/CUMM (3.8-5.5); Red Cell Distribution Width 13.5 % (9.3-17.3); White Blood Count 12.1 T/CUMM (4-12)
[2022-11-06 05:59] LABS: Calcium 8.1 MG/DL (8.5-10.1); Osmolality,Calculated 282.3 MOS/KG (273-304); Potassium 3.6 MMOL/L (3.5-5.1); Risk Ratio 3.77; Thyroid Stimulating Hormone 1.03 uIU/ml (0.358-3.74); VLDL Cholesterol 22.2 MG/DL
[2022-11-06] MEDS: INSULIN REGULAR 100 UNIT/ML SUBCUT SCH ×4 (07:58→21:29)
[2022-11-06] MEDS: GABAPENTIN 300 MG CAPSULE PO SCH (08:08)
[2022-11-06] MEDS: PANTOPRAZOLE 40 MG TABLET PO SCH (08:08)
[2022-11-06] MEDS: ASCORBIC ACID 500 MG TABLET PO SCH ×2 (08:09→20:05)
[2022-11-06 08:52] LABS: % Iron Saturation 44.4 % (18-50); Ferritin 676.6 ng/mL (26-388)
[2022-11-06] MEDS ORDERED: LOSARTAN 50 MG TABLET PO SCH (09:00)
[2022-11-06] MEDS ORDERED: VANCOMYCIN INJ 1,250 MG in SODIUM CHLORIDE 0.9% 250 ML IV SCH (11:00)
[2022-11-06] MEDS: LACTATED RINGERS 1,000 ML IV SCH ×2 (12:04→17:41)
[2022-11-06] MEDS: SODIUM HYPOCHLORITE 0.25% IRRIG 473 ML BOTTLE TOP SCH (12:05)
[2022-11-07] MEDS: PIPERACILLIN/TAZOBACTAM 3,375 MG in SODIUM CHLORIDE 0.9% 100 ML IV SCH ×3 (02:14→17:11)
[2022-11-07 05:45] LABS: Basophils # 0.1 10*3/uL (0.0-0.2); Basophils % 0.4 % (0.0-0.8); Eosinophils # 0.3 10*3/uL (0.0-0.87); Eosinophils % 2.4 % (0.00-10.9); Hematocrit 26.8 VOL% (42.0-52.0); Hemoglobin 8.6 GM/DL (14.0-18.0); Immature Granulocytes % 0.7 %; Immature Granulocytes Absolute 0.09 #; Lymphocytes # 1.9 10*3/uL (1.4-4.0); Lymphocytes % 15.2 % (21.2-54.2); Mean Corpuscular HGB Conc 32.1 GM/DL (32-36); Mean Corpuscular Volume 93.4 FL (87-102); Mean Platelet Volume 9.5 FL (9.6-12.0); Monocytes % 8.1 % (1.7-12.7); Neutrophils % 73.2 % (38.7-73.9); Platelet Count 448 T/CUMM (130-400); Red Blood Count 2.87 MC/CUMM (3.8-5.5); Red Cell Distribution Width 13.5 % (9.3-17.3); White Blood Count 12.7 T/CUMM (4-12)
[2022-11-07 06:10] LABS: Calcium 7.9 MG/DL (8.5-10.1); Osmolality,Calculated 285.3 MOS/KG (273-304); Potassium 3.8 MMOL/L (3.5-5.1)
[2022-11-07] MEDS: GABAPENTIN 300 MG CAPSULE PO SCH (08:01)
[2022-11-07] MEDS: ASCORBIC ACID 500 MG TABLET PO SCH ×2 (08:01→21:27)
[2022-11-07] MEDS: SODIUM HYPOCHLORITE 0.25% IRRIG 473 ML BOTTLE TOP SCH (08:01)
[2022-11-07] MEDS: PANTOPRAZOLE 40 MG TABLET PO SCH (08:01)
[2022-11-07] MEDS: INSULIN REGULAR 100 UNIT/ML SUBCUT SCH ×4 (08:01→21:28)
[2022-11-07] MEDS: LACTATED RINGERS 1,000 ML IV SCH ×2 (12:51)
[2022-11-07] MEDS: HEPARIN 5,000 UNIT/1 ML VIAL SUBCUT SCH (21:27)
[2022-11-08] MEDS: PIPERACILLIN/TAZOBACTAM 3,375 MG in SODIUM CHLORIDE 0.9% 100 ML IV SCH ×3 (02:00→17:23)
[2022-11-08] MEDS: HEPARIN 5,000 UNIT/1 ML VIAL SUBCUT SCH ×3 (05:09→20:33)
[2022-11-08] MEDS: LACTATED RINGERS 1,000 ML IV SCH (05:14)
[2022-11-08 05:38] LABS: Basophils # 0.1 10*3/uL (0.0-0.2); Basophils % 0.4 % (0.0-0.8); Eosinophils # 0.3 10*3/uL (0.0-0.87); Eosinophils % 2.5 % (0.00-10.9); Hematocrit 25.8 VOL% (42.0-52.0); Hemoglobin 8.2 GM/DL (14.0-18.0); Immature Granulocytes % 0.9 %; Immature Granulocytes Absolute 0.12 #; Lymphocytes % 15.6 % (21.2-54.2); Mean Corpuscular HGB Conc 31.8 GM/DL (32-36); Mean Corpuscular Volume 94.2 FL (87-102); Mean Platelet Volume 9.3 FL (9.6-12.0); Monocytes # 0.9 10*3/uL (0.11-0.8); Monocytes % 7.3 % (1.7-12.7); Neutrophils % 73.3 % (38.7-73.9); Platelet Count 458 T/CUMM (130-400); Red Blood Count 2.74 MC/CUMM (3.8-5.5); Red Cell Distribution Width 13.5 % (9.3-17.3); White Blood Count 12.9 T/CUMM (4-12)
[2022-11-08 05:55] LABS: Calcium 7.9 MG/DL (8.5-10.1); Osmolality,Calculated 288.8 MOS/KG (273-304); Potassium 4.1 MMOL/L (3.5-5.1)
[2022-11-08 06:05] LABS: Anisocytosis 1+; Burr Cells 1+; Macrocytosis Slight; Platelet Estimate Normal
[2022-11-08] MEDS: GABAPENTIN 300 MG CAPSULE PO SCH (08:28)
[2022-11-08] MEDS: PANTOPRAZOLE 40 MG TABLET PO SCH (08:28)
[2022-11-08] MEDS: ASCORBIC ACID 500 MG TABLET PO SCH ×2 (08:28→20:26)
[2022-11-08] MEDS: SODIUM HYPOCHLORITE 0.25% IRRIG 473 ML BOTTLE TOP SCH (08:29)
[2022-11-08] MEDS: INSULIN REGULAR 100 UNIT/ML SUBCUT SCH ×4 (08:30→20:36)
[2022-11-09] MEDS: PIPERACILLIN/TAZOBACTAM 3,375 MG in SODIUM CHLORIDE 0.9% 100 ML IV SCH ×2 (02:05→09:07)
[2022-11-09] MEDS: HEPARIN 5,000 UNIT/1 ML VIAL SUBCUT SCH (05:43)
[2022-11-09] MEDS: LACTATED RINGERS 1,000 ML IV SCH (06:50)
[2022-11-09 08:22] VITALS: BP 153/89
[2022-11-09] MEDS: INSULIN REGULAR 100 UNIT/ML SUBCUT SCH (08:52)
[2022-11-09] MEDS: SODIUM HYPOCHLORITE 0.25% IRRIG 473 ML BOTTLE TOP SCH (09:07)
[2022-11-09] MEDS: PANTOPRAZOLE 40 MG TABLET PO SCH (09:09)
[2022-11-09] MEDS: ASCORBIC ACID 500 MG TABLET PO SCH (09:09)
[2022-11-09] MEDS: GABAPENTIN 300 MG CAPSULE PO SCH (09:09)
== END 2022-11-09 11:20 | disposition home health service (06) | DRG 239 ==
LOC: N.ED 05:49 → SUATTDRO 08:06 → N.EDINP 08:06 → N.2E 10:45
PROVIDERS: ADMIT Internal Medicine; ATTEND Emergency Medicine